=== PATIENT | male | born 1970 | race Two or more races ===

== ENCOUNTER 2017-05-30 15:37 | Inpatient (IN) | payer MEDICARE ==
[~2017-05-30] VITALS: Ht 177.8 cm; Wt 82.6 kg
[~2017-05-30 15:37] MED LIST: QUET200T PO
[2017-05-30 16:10] VITALS: BP 115/72
[2017-05-30] MEDS ORDERED: ZOLPIDEM TARTRATE 10 MG TABLET PO PRN (16:15)
[2017-05-30] MEDS ORDERED: HALOPERIDOL 5 MG TABLET PO PRN (16:15)
[2017-05-30] MEDS ORDERED: INFLUENZA VIRUS VACCINE QVS 2017-18 (3YR+)/PF 60 MCG/0.5 ML SYRINGE IM ONE (16:45)
[2017-05-30 17:15] VITALS: BP 117/76
[2017-05-30 18:15] VITALS: BP 115/63
[2017-05-30 19:15] VITALS: BP 118/68
[2017-05-30 20:15] VITALS: BP 107/65
[2017-05-30] MEDS: CEPHALEXIN MONOHYDRATE 500 MG CAPSULE PO SCH (20:36)
[2017-05-30] MEDS: QUEtiapine FUMARATE 100 MG TABLET PO SCH (20:36)
[2017-05-30] MEDS: BACITRACIN 28.4 GM OINTMENT TP SCH (20:36)
[2017-05-31] VITALS (7 sets, daily range): BP systolic 100–111; BP diastolic 53–71
[2017-05-31] MEDS: CEPHALEXIN MONOHYDRATE 500 MG CAPSULE PO SCH ×4 (08:29→20:33)
[2017-05-31] MEDS: NICOTINE 21 MG/24 HOUR PATCH TD SCH (08:29)
[2017-05-31] MEDS: BACITRACIN 28.4 GM OINTMENT TP SCH ×2 (08:30→16:43)
[2017-05-31] MEDS ORDERED: BuPROPion HCL XL 150 MG ER TABLET PO SCH (09:00)
[2017-05-31] MEDS: LORazepam 2 MG TABLET PO PRN (19:23)
[2017-05-31] MEDS: QUEtiapine FUMARATE 100 MG TABLET PO SCH (20:33)
[2017-06-01 08:33] VITALS: BP 100/60
[2017-06-01] MEDS: CEPHALEXIN MONOHYDRATE 500 MG CAPSULE PO SCH ×4 (09:14→20:50)
[2017-06-01] MEDS: BACITRACIN 28.4 GM OINTMENT TP SCH ×2 (09:15→17:02)
[2017-06-01] MEDS: BuPROPion HCL XL 150 MG ER TABLET PO SCH (09:15)
[2017-06-01] MEDS: NICOTINE 21 MG/24 HOUR PATCH TD SCH (09:15)
[2017-06-01] MEDS: LORazepam 2 MG TABLET PO PRN (14:48)
[2017-06-01 16:12] VITALS: BP 117/63
[2017-06-01] MEDS: QUEtiapine FUMARATE 100 MG TABLET PO SCH (20:50)
[2017-06-02 01:14] VITALS: BP 108/68
[2017-06-02 08:40] VITALS: BP 112/60
[2017-06-02] MEDS: CEPHALEXIN MONOHYDRATE 500 MG CAPSULE PO SCH ×4 (08:57→20:07)
[2017-06-02] MEDS: BuPROPion HCL XL 150 MG ER TABLET PO SCH (08:58)
[2017-06-02] MEDS: BACITRACIN 28.4 GM OINTMENT TP SCH ×2 (08:59→16:53)
[2017-06-02] MEDS: NICOTINE 21 MG/24 HOUR PATCH TD SCH (09:00)
[2017-06-02] MEDS: LORazepam 2 MG TABLET PO PRN ×2 (11:53→20:07)
[2017-06-02 16:00] VITALS: BP 109/62
[2017-06-02] MEDS: QUEtiapine FUMARATE 100 MG TABLET PO SCH (20:07)
[2017-06-03 01:53] VITALS: BP 118/64
[2017-06-03 08:30] VITALS: BP 101/72
[2017-06-03] MEDS: CEPHALEXIN MONOHYDRATE 500 MG CAPSULE PO SCH ×2 (08:43→12:29)
[2017-06-03] MEDS: NICOTINE 21 MG/24 HOUR PATCH TD SCH (08:43)
[2017-06-03] MEDS: BuPROPion HCL XL 150 MG ER TABLET PO SCH (08:43)
[2017-06-03] MEDS: BACITRACIN 28.4 GM OINTMENT TP SCH (08:44)
[2017-06-03] MEDS ORDERED: CEPH500 PO (11:42)
[2017-06-03] MEDS ORDERED: QUET100T PO (11:44)
[2017-06-03] MEDS ORDERED: BUPR-93 PO (11:48)
== END 2017-06-03 13:10 | disposition home or self-care (01) | DRG 885 ==
LOC: B2X 16:09
PROVIDERS: ADMIT Psychiatry & Neurology Psychiatry; ATTEND Psychiatry & Neurology Psychiatry
DX: F33.2 Major depressive disorder, recurrent severe without psychotic features (principal); R45.851 Suicidal ideations; F11.20 Opioid dependence, uncomplicated; F15.20 Other stimulant dependence, uncomplicated; B19.20 Unspecified viral hepatitis C without hepatic coma; Z59.0 Homelessness; Z91.5 Personal history of self-harm

== ENCOUNTER 2017-12-30 20:10 | Emergency (ER) | payer MEDICARE ==
[~2017-12-30] VITALS: Ht 172.7 cm; Wt 87.0 kg
[~2017-12-30 20:10] MED LIST changes: +BUPR-93 PO; +FLUO-191 PO; +QUET100T PO; -QUET200T PO
[2017-12-30 20:55] VITALS: BP 113/77
[2017-12-30] MEDS ORDERED: SULFAMETHOX/TRIMETH DS 800-160 MG/TABLET PO ONE (21:15)
[2017-12-30] MEDS ORDERED: IBUPROFEN 800 MG TABLET PO ONE (21:15)
[2017-12-30] MEDS ORDERED: LIDOCAINE 1% 10 ML VIAL INJ ONE (21:15)
== END 2017-12-30 22:00 | disposition home or self-care (01) ==
LOC: EMS 20:12
DX: H60.01 Abscess of right external ear (principal); L02.01 Cutaneous abscess of face
CPT/HCPCS: 10060; 99283; J3490

== ENCOUNTER 2018-11-04 17:35 | Inpatient (IN) | payer MEDICARE ==
[~2018-11-04] VITALS: Ht 177.8 cm; Wt 92.1 kg
[2018-11-04] MEDS ORDERED: HALOPERIDOL 5 MG TABLET PO PRN (19:00)
[2018-11-04 19:08] VITALS: BP 141/78
[2018-11-04] MEDS: LORazepam 2 MG TABLET PO PRN (20:30)
[2018-11-04 21:14] VITALS: BP 111/81
[2018-11-04] MEDS: ZOLPIDEM TARTRATE 10 MG TABLET PO PRN (21:27)
[2018-11-05 06:44] VITALS: BP 115/62
[2018-11-05 08:22] VITALS: BP 107/69
[2018-11-05] MEDS: LORazepam 2 MG TABLET PO PRN ×2 (08:39→16:02)
[2018-11-05] MEDS: FLUoxetine HCL 20 MG CAPSULE PO SCH (12:32)
[2018-11-05] MEDS: BuPROPion HCL XL 150 MG ER TABLET PO SCH (12:32)
[2018-11-05 16:12] VITALS: BP 109/67
[2018-11-05] MEDS: QUEtiapine FUMARATE 200 MG TABLET PO SCH (20:31)
[2018-11-05] MEDS: ZOLPIDEM TARTRATE 10 MG TABLET PO PRN (21:22)
[2018-11-06 06:38] VITALS: BP 110/63
[2018-11-06 08:22] VITALS: BP 107/67
[2018-11-06] MEDS: FLUoxetine HCL 20 MG CAPSULE PO SCH (08:36)
[2018-11-06] MEDS: BuPROPion HCL XL 150 MG ER TABLET PO SCH (08:36)
[2018-11-06 08:40] LABS: BASOPHILS % (AUTO) 1.1 % (0.0-2.0); EOSINOPHILS % (AUTO) 3.2 % (1.0-6.0); HEMATOCRIT 45.7 % (41-53); HEMOGLOBIN 15.2 g/dL (13.5-17.5); LYMPHOCYTES # (AUTO) 2.1 K/uL (1.0-4.8); LYMPHOCYTES % (AUTO) 38.4 % (22.0-44.0); MEAN CORPUSCULAR HEMOGLOBIN 33.7 pg (26.0-34.0); MEAN CORPUSCULAR HGB CONC 33.2 G/dL (31.0-37.0); MEAN CORPUSCULAR VOLUME 102 fL (80-100); MONOCYTES # (AUTO) 0.5 K/uL (0.1-1.0); MONOCYTES % (AUTO) 8.4 % (2.0-9.0); NEUTROPHILS # (AUTO) 2.6 K/uL (1.8-7.7); NEUTROPHILS % (AUTO) 48.9 % (40.0-70.0); PLATELET COUNT (AUTO) 215 K/uL (150-450); RED BLOOD CELL COUNT(AUTO) 4.49 MIL/uL (4.50-5.90); RED CELL DISTRIBUTION WIDTH 12.8 % (11.5-14.5)
[2018-11-06 08:56] LABS: HEMOGLOBIN A1C 5.5 % (4.5-6.2)
[2018-11-06 09:16] LABS: ALANINE AMINOTRANSFERASE 115 U/L (12-78); ALBUMIN 3.3 g/dL (3.4-5.0); ALKALINE PHOSPHATASE 53 U/L (46-116); ANION GAP 10 mmol/L (8-16); ASPARTATE AMINOTRANSFERASE 80 U/L (15-37); BILIRUBIN,TOTAL 0.5 mg/dL (0.1-1.0); CALCIUM, TOTAL 8.9 mg/dL (8.8-10.5); CARBON DIOXIDE 25 mmol/L (22-29); CHLORIDE 107 mmol/L (98-107); CHOL/HDL RATIO 3.5 (4.2-7.3); CHOLESTEROL 161 mg/dL (131-200); CREATININE 0.95 mg/dL (0.60-1.30); FREE T4 (FREE THYROXINE) 1.17 ng/dL (0.76-1.46); GLOMERULAR FILTR. RATE CALC > 60 mL/min (>60); GLUCOSE,RANDOM 82 mg/dL (70-110); HDL CHOLESTEROL 46 mg/dL (40-60); LDL CHOL (CALC.) 103 mg/dL (0-130); SODIUM SERUM 142 mmol/L (136-145); THYROID STIMULATING HORMONE 2.43 uIU/mL (0.36-3.74); TOTAL PROTEIN, SERUM 6.6 g/dL (6.4-8.2); TRIGLYCERIDES 60 mg/dL (15-150); UREA NITROGEN, BLOOD 10 mg/dL (7-18)
[2018-11-06 16:09] VITALS: BP 110/70
[2018-11-06] MEDS: QUEtiapine FUMARATE 200 MG TABLET PO SCH (20:32)
[2018-11-06] MEDS: LORazepam 2 MG TABLET PO PRN (20:41)
[2018-11-07 06:25] VITALS: BP 106/68
[2018-11-07 08:09] VITALS: BP 118/70
[2018-11-07] MEDS: BuPROPion HCL XL 150 MG ER TABLET PO SCH (08:10)
[2018-11-07] MEDS: FLUoxetine HCL 20 MG CAPSULE PO SCH (08:10)
[2018-11-07 08:21] LABS: AMPHET/METH SCREEN,URINE NEGATIVE (NEGATIVE); BARBITURATE SCREEN, URINE NEGATIVE (NEGATIVE); BENZODIAZEPINES SCREEN,URINE NEGATIVE (NEGATIVE); CANNABINOID SCREEN,URINE NEGATIVE (NEGATIVE); COCAINE SCREEN,URINE NEGATIVE (NEGATIVE); METHADONE SCREEN, URINE NEGATIVE (NEGATIVE); OPIATE SCREEN,URINE NEGATIVE (NEGATIVE)
[2018-11-07 08:40] LABS: PHENCYCLIDINE SCREEN,URINE NEGATIVE (NEGATIVE)
[2018-11-07 08:45] LABS: APPEARANCE,URINE CLEAR (CLEAR); BILIRUBIN,URINE NEGATIVE (NEGATIVE); GLUCOSE, URINE (UA) NEGATIVE (NEGATIVE); KETONES,URINE NEGATIVE (NEGATIVE); LEUKOCYTE ESTERASE ,URINE NEGATIVE (NEGATIVE); NITRATE,URINE NEGATIVE (NEGATIVE); OCCULT BLOOD,URINE NEGATIVE (NEGATIVE); PROTEIN,URINE NEGATIVE (NEGATIVE)
[2018-11-07] MEDS: LORazepam 2 MG TABLET PO PRN (13:13)
[2018-11-07 16:13] VITALS: BP 119/78
[2018-11-07] MEDS: QUEtiapine FUMARATE 200 MG TABLET PO SCH (20:13)
[2018-11-08 06:06] VITALS: BP 114/70
[2018-11-08 08:05] VITALS: BP 106/65
[2018-11-08] MEDS: FLUoxetine HCL 20 MG CAPSULE PO SCH (08:44)
[2018-11-08] MEDS: BuPROPion HCL XL 150 MG ER TABLET PO SCH (08:44)
[2018-11-08] MEDS: LORazepam 2 MG TABLET PO PRN (14:20)
[2018-11-08 16:16] VITALS: BP 108/61
[2018-11-08] MEDS: QUEtiapine FUMARATE 200 MG TABLET PO SCH (20:29)
[2018-11-09 05:45] VITALS: BP 108/62
[2018-11-09] MEDS: LORazepam 2 MG TABLET PO PRN ×2 (05:47→13:52)
[2018-11-09 08:06] VITALS: BP 107/67
[2018-11-09] MEDS: FLUoxetine HCL 20 MG CAPSULE PO SCH (08:35)
[2018-11-09] MEDS: BuPROPion HCL XL 150 MG ER TABLET PO SCH (08:35)
[2018-11-09 16:08] VITALS: BP 104/70
[2018-11-09] MEDS: QUEtiapine FUMARATE 200 MG TABLET PO SCH (20:29)
[2018-11-10 00:31] VITALS: BP 121/68
[2018-11-10 08:21] VITALS: BP 101/62
[2018-11-10] MEDS: FLUoxetine HCL 20 MG CAPSULE PO SCH (08:39)
[2018-11-10] MEDS: BuPROPion HCL XL 150 MG ER TABLET PO SCH (08:39)
[2018-11-10] MEDS ORDERED: QUET200T PO (14:24)
[2018-11-10] MEDS ORDERED: BUPR-93 PO (14:24)
[2018-11-10] MEDS ORDERED: FLUO-191 PO (14:24)
== END 2018-11-10 16:00 | disposition home or self-care (01) | DRG 885 ==
LOC: B2X 18:51
DX: F33.2 Major depressive disorder, recurrent severe without psychotic features (principal); R45.851 Suicidal ideations; B19.20 Unspecified viral hepatitis C without hepatic coma; F11.90 Opioid use, unspecified, uncomplicated; F15.90 Other stimulant use, unspecified, uncomplicated; F17.200 Nicotine dependence, unspecified, uncomplicated; Z59.0 Homelessness; Z80.9 Family history of malignant neoplasm, unspecified; Z79.899 Other long term (current) drug therapy
CPT/HCPCS: 80074; 80307; 82105; 83036; 84439; 84443

== ENCOUNTER 2018-11-27 15:14 | Inpatient (IN) | payer MEDICARE ==
[~2018-11-27] VITALS: Ht 177.8 cm; Wt 94.8 kg
[~2018-11-27 15:14] MED LIST changes: -QUET100T PO; +QUET200T PO
[2018-11-27] MEDS ORDERED: HALOPERIDOL 5 MG TABLET PO PRN (17:45)
[2018-11-27] MEDS ORDERED: ZOLPIDEM TARTRATE 10 MG TABLET PO PRN (17:45)
[2018-11-27] MEDS ORDERED: LORazepam 2 MG TABLET PO PRN (17:45)
[2018-11-27 17:55] VITALS: BP 120/78
[2018-11-27 18:30] VITALS: BP 109/74
[2018-11-27] MEDS: QUEtiapine FUMARATE 200 MG TABLET PO SCH (20:10)
[2018-11-28 05:15] VITALS: BP 118/70
[2018-11-28 07:52] VITALS: BP 104/67
[2018-11-28 08:00] VITALS: BP 104/67
[2018-11-28] MEDS: BuPROPion HCL XL 150 MG ER TABLET PO SCH (08:07)
[2018-11-28] MEDS: FLUoxetine HCL 20 MG CAPSULE PO SCH (08:07)
[2018-11-28] MEDS ORDERED: BISACODYL 5 MG EC TABLET PO PRN (12:15)
[2018-11-28 16:03] VITALS: BP 116/86
[2018-11-28] MEDS: QUEtiapine FUMARATE 200 MG TABLET PO SCH (20:01)
[2018-11-29 03:34] VITALS: BP 119/69
[2018-11-29 07:18] LABS: BASOPHILS % (AUTO) 1.2 % (0.0-2.0); HEMATOCRIT 47.7 % (41-53); HEMOGLOBIN 16.4 g/dL (13.5-17.5); LYMPHOCYTES # (AUTO) 2.2 K/uL (1.0-4.8); LYMPHOCYTES % (AUTO) 31.4 % (22.0-44.0); MEAN CORPUSCULAR HEMOGLOBIN 34.5 pg (26.0-34.0); MEAN CORPUSCULAR HGB CONC 34.5 G/dL (31.0-37.0); MEAN CORPUSCULAR VOLUME 100 fL (80-100); MONOCYTES # (AUTO) 0.6 K/uL (0.1-1.0); MONOCYTES % (AUTO) 8.1 % (2.0-9.0); NEUTROPHILS # (AUTO) 3.9 K/uL (1.8-7.7); NEUTROPHILS % (AUTO) 56.3 % (40.0-70.0); PLATELET COUNT (AUTO) 226 K/uL (150-450); RED BLOOD CELL COUNT(AUTO) 4.77 MIL/uL (4.50-5.90); RED CELL DISTRIBUTION WIDTH 12.3 % (11.5-14.5)
[2018-11-29 07:58] LABS: ALANINE AMINOTRANSFERASE 106 U/L (12-78); ALBUMIN 3.4 g/dL (3.4-5.0); ALKALINE PHOSPHATASE 58 U/L (46-116); ANION GAP 11 mmol/L (8-16); ASPARTATE AMINOTRANSFERASE 64 U/L (15-37); BILIRUBIN,TOTAL 0.4 mg/dL (0.1-1.0); CARBON DIOXIDE 24 mmol/L (22-29); CHLORIDE 104 mmol/L (98-107); CHOL/HDL RATIO 4.3 (4.2-7.3); CHOLESTEROL 181 mg/dL (131-200); CREATININE 1.01 mg/dL (0.60-1.30); FREE T4 (FREE THYROXINE) 1.06 ng/dL (0.76-1.46); GLOMERULAR FILTR. RATE CALC > 60 mL/min (>60); GLUCOSE,RANDOM 82 mg/dL (70-110); HDL CHOLESTEROL 42 mg/dL (40-60); LDL CHOL (CALC.) 118 mg/dL (0-130); POTASSIUM 4.2 mmol/L (3.5-5.1); SODIUM SERUM 139 mmol/L (136-145); TOTAL PROTEIN, SERUM 6.6 g/dL (6.4-8.2); TRIGLYCERIDES 106 mg/dL (15-150); UREA NITROGEN, BLOOD 13 mg/dL (7-18)
[2018-11-29 07:59] LABS: HEMOGLOBIN A1C 5.4 % (4.5-6.2)
[2018-11-29 08:05] VITALS: BP 108/67
[2018-11-29] MEDS: FLUoxetine HCL 20 MG CAPSULE PO SCH (08:44)
[2018-11-29] MEDS: BuPROPion HCL XL 150 MG ER TABLET PO SCH (08:44)
[2018-11-29 16:42] VITALS: BP 119/81
[2018-11-29] MEDS: QUEtiapine FUMARATE 200 MG TABLET PO SCH (20:28)
[2018-11-30 00:25] VITALS: BP 103/62
[2018-11-30 08:07] VITALS: BP 112/72
[2018-11-30] MEDS: BuPROPion HCL XL 150 MG ER TABLET PO SCH (08:21)
[2018-11-30] MEDS: FLUoxetine HCL 20 MG CAPSULE PO SCH (08:21)
[2018-11-30 16:02] VITALS: BP 125/83
[2018-11-30] MEDS: QUEtiapine FUMARATE 200 MG TABLET PO SCH (20:06)
[2018-12-01 00:34] VITALS: BP 112/67
[2018-12-01 08:05] VITALS: BP 110/73
[2018-12-01] MEDS: FLUoxetine HCL 20 MG CAPSULE PO SCH (08:15)
[2018-12-01] MEDS: BuPROPion HCL XL 150 MG ER TABLET PO SCH (08:15)
== END 2018-12-01 12:10 | disposition home or self-care (01) | DRG 885 ==
LOC: B2X 18:18
DX: F33.2 Major depressive disorder, recurrent severe without psychotic features (principal); R45.851 Suicidal ideations; B19.20 Unspecified viral hepatitis C without hepatic coma; R79.89 Other specified abnormal findings of blood chemistry; K59.00 Constipation, unspecified; Z79.899 Other long term (current) drug therapy; Z91.5 Personal history of self-harm
CPT/HCPCS: 83036; 84439; 84443; 87081

== ENCOUNTER 2019-05-25 18:47 | Inpatient (IN) | payer MEDICARE, MEDICAID ==
[~2019-05-25] VITALS: Ht 177.8 cm; Wt 89.8 kg
[~2019-05-25 18:47] MED LIST changes: -QUET200T PO
[2019-05-25] MEDS ORDERED: QUET25TA PO (18:57)
[2019-05-25] MEDS ORDERED: QUET200T PO (18:57)
[2019-05-25] MEDS ORDERED: HALOPERIDOL 5 MG TABLET PO PRN (19:15)
[2019-05-25] MEDS ORDERED: ZOLPIDEM TARTRATE 10 MG TABLET PO PRN (19:15)
[2019-05-25 19:26] VITALS: BP 123/92
[2019-05-25 20:59] VITALS: BP 121/85
[2019-05-25] MEDS: QUEtiapine FUMARATE 200 MG TABLET PO SCH (21:09)
[2019-05-25] MEDS ORDERED: INFLUENZA VIRUS VACCINE QVS 2019-20 (3YR+)/PF 60 MCG/0.5 ML SYRINGE IM ONE (21:45)
[2019-05-26 00:15] VITALS: BP 107/57
[2019-05-26 07:49] LABS: BASOPHILS % (AUTO) 0.8 % (0.0-2.0); EOSINOPHILS % (AUTO) 3.5 % (1.0-6.0); HEMATOCRIT 43.5 % (41-53); HEMOGLOBIN 14.4 g/dL (13.5-17.5); LYMPHOCYTES # (AUTO) 2.6 K/uL (1.0-4.8); LYMPHOCYTES % (AUTO) 47.3 % (22.0-44.0); MEAN CORPUSCULAR HEMOGLOBIN 33.2 pg (26.0-34.0); MEAN CORPUSCULAR HGB CONC 33.1 G/dL (31.0-37.0); MEAN CORPUSCULAR VOLUME 100 fL (80-100); MONOCYTES # (AUTO) 0.6 K/uL (0.1-1.0); MONOCYTES % (AUTO) 11.6 % (2.0-9.0); NEUTROPHILS % (AUTO) 36.8 % (40.0-70.0); PLATELET COUNT (AUTO) 236 K/uL (150-450); RED BLOOD CELL COUNT(AUTO) 4.33 MIL/uL (4.50-5.90); RED CELL DISTRIBUTION WIDTH 13.1 % (11.5-14.5)
[2019-05-26 08:06] VITALS: BP 140/71
[2019-05-26 08:07] LABS: HEMOGLOBIN A1C 5.7 % (3.8-5.6)
[2019-05-26 08:19] LABS: ALANINE AMINOTRANSFERASE 62 U/L (12-78); ALBUMIN 3.5 g/dL (3.4-5.0); ALKALINE PHOSPHATASE 47 U/L (46-116); ANION GAP 11 mmol/L (8-16); ASPARTATE AMINOTRANSFERASE 40 U/L (15-37); BILIRUBIN,TOTAL 0.5 mg/dL (0.1-1.0); CARBON DIOXIDE 24 mmol/L (22-29); CHLORIDE 104 mmol/L (98-107); CHOL/HDL RATIO 2.7 (4.2-7.3); CHOLESTEROL 158 mg/dL (131-200); FREE T4 (FREE THYROXINE) 1.15 ng/dL (0.76-1.46); GLOMERULAR FILTR. RATE CALC > 60 mL/min (>60); GLUCOSE,RANDOM 87 mg/dL (70-110); HDL CHOLESTEROL 58 mg/dL (40-60); LDL CHOL (CALC.) 92 mg/dL (0-130); POTASSIUM 3.7 mmol/L (3.5-5.1); SODIUM SERUM 139 mmol/L (136-145); THYROID STIMULATING HORMONE 3.16 uIU/mL (0.36-3.74); TOTAL PROTEIN, SERUM 6.8 g/dL (6.4-8.2); TRIGLYCERIDES 42 mg/dL (15-150); UREA NITROGEN, BLOOD 12 mg/dL (7-18)
[2019-05-26 08:20] VITALS: BP 113/75
[2019-05-26] MEDS: QUEtiapine FUMARATE 25 MG TABLET PO SCH (08:55)
[2019-05-26] MEDS: LORazepam 2 MG TABLET PO PRN (14:51)
[2019-05-26 16:10] VITALS: BP 110/69
[2019-05-26] MEDS: QUEtiapine FUMARATE 200 MG TABLET PO SCH (20:04)
[2019-05-26] MEDS ORDERED: QUEtiapine FUMARATE 200 MG TABLET PO SCH (21:00)
[2019-05-27 06:30] VITALS: BP 106/62
[2019-05-27] MEDS: BuPROPion HCL XL 150 MG ER TABLET PO SCH (08:09)
[2019-05-27] MEDS: FLUoxetine HCL 20 MG CAPSULE PO SCH (08:09)
[2019-05-27] MEDS: QUEtiapine FUMARATE 25 MG TABLET PO SCH (08:09)
[2019-05-27 08:13] VITALS: BP 108/83
[2019-05-27] MEDS ORDERED: QUEtiapine FUMARATE 25 MG TABLET PO SCH (09:00)
[2019-05-27] MEDS: LORazepam 2 MG TABLET PO PRN ×2 (10:14→17:16)
[2019-05-27 16:20] VITALS: BP 124/86
[2019-05-27] MEDS: QUEtiapine FUMARATE 200 MG TABLET PO SCH (20:03)
[2019-05-28 00:08] VITALS: BP 123/73
[2019-05-28] MEDS: FLUoxetine HCL 20 MG CAPSULE PO SCH (08:21)
[2019-05-28] MEDS: BuPROPion HCL XL 150 MG ER TABLET PO SCH (08:22)
[2019-05-28] MEDS: QUEtiapine FUMARATE 25 MG TABLET PO SCH (08:22)
[2019-05-28 12:32] VITALS: BP 123/66
[2019-05-28 16:23] VITALS: BP 122/80
[2019-05-28] MEDS: LORazepam 2 MG TABLET PO PRN (17:48)
[2019-05-28] MEDS: QUEtiapine FUMARATE 200 MG TABLET PO SCH (20:02)
[2019-05-29 06:38] VITALS: BP 115/73
[2019-05-29 08:06] VITALS: BP 132/80
[2019-05-29] MEDS: FLUoxetine HCL 20 MG CAPSULE PO SCH (08:07)
[2019-05-29] MEDS: BuPROPion HCL XL 150 MG ER TABLET PO SCH (08:08)
[2019-05-29] MEDS: QUEtiapine FUMARATE 25 MG TABLET PO SCH (08:08)
[2019-05-29] MEDS: LORazepam 2 MG TABLET PO PRN (15:28)
[2019-05-29 16:08] VITALS: BP 135/72
[2019-05-29] MEDS: QUEtiapine FUMARATE 200 MG TABLET PO SCH (20:02)
[2019-05-30 08:07] VITALS: BP 127/82
[2019-05-30] MEDS: BuPROPion HCL XL 150 MG ER TABLET PO SCH (08:16)
[2019-05-30] MEDS: SERTRALINE HCL 50 MG TABLET PO SCH (08:16)
[2019-05-30] MEDS: QUEtiapine FUMARATE 25 MG TABLET PO SCH (08:16)
[2019-05-30] MEDS: LORazepam 2 MG TABLET PO PRN ×2 (12:30→20:12)
[2019-05-30 16:07] VITALS: BP 118/68
[2019-05-30] MEDS: QUEtiapine FUMARATE 200 MG TABLET PO SCH (20:07)
[2019-05-31 06:13] VITALS: BP 121/68
[2019-05-31 08:21] VITALS: BP 121/66
[2019-05-31] MEDS: SERTRALINE HCL 50 MG TABLET PO SCH (08:33)
[2019-05-31] MEDS: BuPROPion HCL XL 150 MG ER TABLET PO SCH (08:33)
[2019-05-31] MEDS: QUEtiapine FUMARATE 25 MG TABLET PO SCH (08:33)
[2019-05-31] MEDS: LORazepam 2 MG TABLET PO PRN ×2 (09:19→17:08)
[2019-05-31 16:02] VITALS: BP 114/69
[2019-05-31] MEDS: QUEtiapine FUMARATE 200 MG TABLET PO SCH (20:22)
[2019-06-01 03:29] VITALS: BP 115/78
[2019-06-01 08:14] VITALS: BP 106/67
[2019-06-01] MEDS: SERTRALINE HCL 50 MG TABLET PO SCH (08:56)
[2019-06-01] MEDS: QUEtiapine FUMARATE 25 MG TABLET PO SCH (08:56)
[2019-06-01] MEDS: BuPROPion HCL XL 150 MG ER TABLET PO SCH (08:56)
[2019-06-01] MEDS: LORazepam 2 MG TABLET PO PRN ×2 (09:00→16:31)
[2019-06-01 16:21] VITALS: BP 114/73
[2019-06-01] MEDS: QUEtiapine FUMARATE 200 MG TABLET PO SCH (20:31)
[2019-06-02 06:30] VITALS: BP 126/70
[2019-06-02] MEDS: SERTRALINE HCL 50 MG TABLET PO SCH (08:02)
[2019-06-02] MEDS: QUEtiapine FUMARATE 25 MG TABLET PO SCH (08:02)
[2019-06-02] MEDS: BuPROPion HCL XL 150 MG ER TABLET PO SCH (08:02)
[2019-06-02 08:08] VITALS: BP 112/59
[2019-06-02] MEDS ORDERED: SERT50TA12 PO (12:53)
== END 2019-06-02 14:15 | disposition home or self-care (01) | DRG 885 ==
LOC: B2X 19:11
PROVIDERS: ADMIT Psychiatry & Neurology Child & Adolescent Psychiatry; ATTEND Psychiatry & Neurology Child & Adolescent Psychiatry
DX: F31.4 Bipolar disorder, current episode depressed, severe, without psychotic features (principal); R74.0 Nonspecific elevation of levels of transaminase and lactic acid dehydrogenase [LDH]; K59.00 Constipation, unspecified
CPT/HCPCS: 83036; 84439; 84443

== ENCOUNTER 2019-06-13 16:32 | Inpatient (IN) | payer MEDICARE ==
[~2019-06-13] VITALS: Ht 177.8 cm; Wt 86.3 kg
[~2019-06-13 16:32] MED LIST changes: -FLUO-191 PO; +QUET200T PO; +QUET25TA PO; +SERT50TA12 PO
[2019-06-13] MEDS ORDERED: HALOPERIDOL 5 MG TABLET PO PRN (18:00)
[2019-06-13 18:57] VITALS: BP 124/79
[2019-06-13 19:24] VITALS: BP 105/70
[2019-06-13] MEDS: LORazepam 2 MG TABLET PO PRN (20:43)
[2019-06-13] MEDS: ZOLPIDEM TARTRATE 10 MG TABLET PO PRN (21:22)
[2019-06-14 07:26] LABS: BASOPHILS % (AUTO) 0.7 % (0.0-2.0); EOSINOPHILS % (AUTO) 3.7 % (1.0-6.0); HEMATOCRIT 46.2 % (41-53); HEMOGLOBIN 15.4 g/dL (13.5-17.5); LYMPHOCYTES # (AUTO) 2.7 K/uL (1.0-4.8); LYMPHOCYTES % (AUTO) 28.6 % (22.0-44.0); MEAN CORPUSCULAR HEMOGLOBIN 33.2 pg (26.0-34.0); MEAN CORPUSCULAR HGB CONC 33.4 G/dL (31.0-37.0); MEAN CORPUSCULAR VOLUME 99 fL (80-100); MONOCYTES # (AUTO) 0.7 K/uL (0.1-1.0); MONOCYTES % (AUTO) 7.2 % (2.0-9.0); NEUTROPHILS # (AUTO) 5.6 K/uL (1.8-7.7); NEUTROPHILS % (AUTO) 59.8 % (40.0-70.0); PLATELET COUNT (AUTO) 248 K/uL (150-450); RED BLOOD CELL COUNT(AUTO) 4.65 MIL/uL (4.50-5.90); RED CELL DISTRIBUTION WIDTH 12.8 % (11.5-14.5)
[2019-06-14 07:41] LABS: ALANINE AMINOTRANSFERASE 79 U/L (12-78); ALBUMIN 3.6 g/dL (3.4-5.0); ALKALINE PHOSPHATASE 57 U/L (46-116); ANION GAP 8 mmol/L (8-16); ASPARTATE AMINOTRANSFERASE 43 U/L (15-37); BILIRUBIN,TOTAL 0.5 mg/dL (0.1-1.0); CALCIUM, TOTAL 8.7 mg/dL (8.8-10.5); CARBON DIOXIDE 27 mmol/L (22-29); CHLORIDE 105 mmol/L (98-107); CHOL/HDL RATIO 4.2 (4.2-7.3); CHOLESTEROL 208 mg/dL (131-200); CREATININE 0.92 mg/dL (0.60-1.30); FREE T4 (FREE THYROXINE) 1.13 ng/dL (0.76-1.46); GLOMERULAR FILTR. RATE CALC > 60 mL/min (>60); GLUCOSE,RANDOM 82 mg/dL (70-110); HDL CHOLESTEROL 50 mg/dL (40-60); LDL CHOL (CALC.) 141 mg/dL (0-130); POTASSIUM 4.2 mmol/L (3.5-5.1); SODIUM SERUM 140 mmol/L (136-145); THYROID STIMULATING HORMONE 2.46 uIU/mL (0.36-3.74); TOTAL PROTEIN, SERUM 6.7 g/dL (6.4-8.2); TRIGLYCERIDES 83 mg/dL (15-150); UREA NITROGEN, BLOOD 17 mg/dL (7-18)
[2019-06-14 08:08] VITALS: BP 110/70
[2019-06-14] MEDS: LORazepam 2 MG TABLET PO PRN ×2 (09:49→16:00)
[2019-06-14 09:51] VITALS: BP 134/75
[2019-06-14] MEDS: SERTRALINE HCL 100 MG TABLET PO SCH (12:18)
[2019-06-14] MEDS: QUEtiapine FUMARATE 25 MG TABLET PO SCH (12:18)
[2019-06-14] MEDS ORDERED: LOPERAMIDE HCL 2 MG CAPSULE PO PRN (13:15)
[2019-06-14] MEDS ORDERED: ACETAMINOPHEN 325 MG TABLET PO PRN (13:15)
[2019-06-14] MEDS ORDERED: ONDANSETRON HCL 4 MG TABLET PO PRN (13:15)
[2019-06-14] MEDS ORDERED: CloNIDine HCL 0.1 MG TABLET PO PRN (13:15)
[2019-06-14] MEDS ORDERED: PETROLATUM,WHITE 28 GM JELLY TP PRN (13:15)
[2019-06-14] MEDS ORDERED: NICOTINE 14 MG/24 HOUR PATCH TD PRN (13:15)
[2019-06-14] MEDS ORDERED: GuaiFENesin/D-METHORPHAN [SUGAR-FREE] 200-20MG/10 ML SYRUP UDCUP PO PRN (13:15)
[2019-06-14] MEDS ORDERED: ALBUTEROL SULFATE HFA 90 MCG/PUFF 8 GM INHALER IH PRN (13:15)
[2019-06-14] MEDS ORDERED: IBUPROFEN 400 MG TABLET PO PRN (13:15)
[2019-06-14 16:07] VITALS: BP 113/72
[2019-06-14] MEDS: MAGNESIUM HYDROXIDE SUSPENSION 30 ML UDCUP PO PRN (17:22)
[2019-06-14] MEDS: QUEtiapine FUMARATE 200 MG TABLET PO SCH (20:27)
[2019-06-14] MEDS: ZOLPIDEM TARTRATE 10 MG TABLET PO PRN (20:52)
[2019-06-15 07:23] VITALS: BP 108/68
[2019-06-15 08:17] VITALS: BP 110/65
[2019-06-15] MEDS: SERTRALINE HCL 100 MG TABLET PO SCH (08:25)
[2019-06-15] MEDS: QUEtiapine FUMARATE 25 MG TABLET PO SCH (08:25)
[2019-06-15] MEDS: LORazepam 2 MG TABLET PO PRN ×2 (09:53→19:21)
[2019-06-15] MEDS: MAG HYDROX/AL HYDROX/SIMETH ES 30 ML SUSPENSION UDCUP PO PRN (11:51)
[2019-06-15 16:10] VITALS: BP 113/73
[2019-06-15] MEDS: MAGNESIUM HYDROXIDE SUSPENSION 30 ML UDCUP PO PRN (19:21)
[2019-06-15] MEDS: ZOLPIDEM TARTRATE 10 MG TABLET PO PRN (20:34)
[2019-06-15] MEDS: QUEtiapine FUMARATE 200 MG TABLET PO SCH (20:34)
[2019-06-16 05:32] VITALS: BP 104/60
[2019-06-16 08:21] VITALS: BP 103/62
[2019-06-16] MEDS: QUEtiapine FUMARATE 25 MG TABLET PO SCH (08:38)
[2019-06-16] MEDS: SERTRALINE HCL 100 MG TABLET PO SCH (08:38)
[2019-06-16] MEDS: LORazepam 2 MG TABLET PO PRN ×3 (09:33→20:51)
[2019-06-16] MEDS: MAGNESIUM HYDROXIDE SUSPENSION 30 ML UDCUP PO PRN (09:36)
[2019-06-16 16:21] VITALS: BP 118/66
[2019-06-16] MEDS: QUEtiapine FUMARATE 200 MG TABLET PO SCH (20:27)
[2019-06-16] MEDS: ZOLPIDEM TARTRATE 10 MG TABLET PO PRN (21:39)
[2019-06-17 05:57] VITALS: BP 113/67
[2019-06-17 08:11] VITALS: BP 99/61
[2019-06-17] MEDS: LORazepam 2 MG TABLET PO PRN ×2 (09:03→17:08)
[2019-06-17] MEDS: SERTRALINE HCL 100 MG TABLET PO SCH (09:05)
[2019-06-17] MEDS: QUEtiapine FUMARATE 25 MG TABLET PO SCH (09:05)
[2019-06-17] MEDS: MAGNESIUM HYDROXIDE SUSPENSION 30 ML UDCUP PO PRN (10:03)
[2019-06-17 16:38] VITALS: BP 106/74
[2019-06-17 17:09] VITALS: BP 110/79
[2019-06-17] MEDS: QUEtiapine FUMARATE 200 MG TABLET PO SCH (20:28)
[2019-06-17] MEDS: ZOLPIDEM TARTRATE 10 MG TABLET PO PRN (20:59)
[2019-06-18 06:16] VITALS: BP 105/69
[2019-06-18 08:18] VITALS: BP 105/70
[2019-06-18] MEDS: SERTRALINE HCL 100 MG TABLET PO SCH (08:33)
[2019-06-18] MEDS: QUEtiapine FUMARATE 25 MG TABLET PO SCH (08:33)
[2019-06-18] MEDS: LORazepam 2 MG TABLET PO PRN ×3 (08:44→19:31)
[2019-06-18] MEDS: MAGNESIUM HYDROXIDE SUSPENSION 30 ML UDCUP PO PRN (08:44)
[2019-06-18 16:12] VITALS: BP 102/73
[2019-06-18] MEDS: QUEtiapine FUMARATE 200 MG TABLET PO SCH (20:31)
[2019-06-18] MEDS: ZOLPIDEM TARTRATE 10 MG TABLET PO PRN (20:48)
[2019-06-19 08:23] VITALS: BP 102/64
[2019-06-19] MEDS: QUEtiapine FUMARATE 25 MG TABLET PO SCH (08:37)
[2019-06-19] MEDS: SERTRALINE HCL 100 MG TABLET PO SCH (08:37)
[2019-06-19] MEDS: MAGNESIUM HYDROXIDE SUSPENSION 30 ML UDCUP PO PRN (13:05)
[2019-06-19] MEDS: LORazepam 2 MG TABLET PO PRN ×2 (14:00→19:04)
[2019-06-19 16:11] VITALS: BP 124/72
[2019-06-19] MEDS: QUEtiapine FUMARATE 200 MG TABLET PO SCH (20:06)
[2019-06-19] MEDS: ZOLPIDEM TARTRATE 10 MG TABLET PO PRN (20:07)
[2019-06-20 01:58] VITALS: BP 121/74
[2019-06-20 08:07] VITALS: BP_SYST 103; BP_SYST 107; BP_DIAS 58; BP_DIAS 75
[2019-06-20] MEDS: SERTRALINE HCL 100 MG TABLET PO SCH (08:43)
[2019-06-20] MEDS: QUEtiapine FUMARATE 25 MG TABLET PO SCH (08:43)
[2019-06-20] MEDS: LORazepam 2 MG TABLET PO PRN ×2 (10:02→17:13)
[2019-06-20] MEDS: MAGNESIUM HYDROXIDE SUSPENSION 30 ML UDCUP PO PRN (10:02)
[2019-06-20 16:00] VITALS: BP 103/69
[2019-06-20] MEDS: QUEtiapine FUMARATE 200 MG TABLET PO SCH (20:25)
[2019-06-20] MEDS: ZOLPIDEM TARTRATE 10 MG TABLET PO PRN (20:51)
[2019-06-21 06:30] VITALS: BP 100/79
[2019-06-21] MEDS: QUEtiapine FUMARATE 25 MG TABLET PO SCH (08:31)
[2019-06-21] MEDS: SERTRALINE HCL 100 MG TABLET PO SCH (08:31)
[2019-06-21 08:34] VITALS: BP 100/61
[2019-06-21] MEDS: LORazepam 1 MG TABLET PO PRN (13:15)
[2019-06-21] MEDS: MAG HYDROX/AL HYDROX/SIMETH ES 30 ML SUSPENSION UDCUP PO PRN (13:16)
[2019-06-21 16:16] VITALS: BP 106/69
[2019-06-21] MEDS: MAGNESIUM HYDROXIDE SUSPENSION 30 ML UDCUP PO PRN (17:41)
[2019-06-21] MEDS: QUEtiapine FUMARATE 200 MG TABLET PO SCH (20:40)
[2019-06-21] MEDS: ZOLPIDEM TARTRATE 10 MG TABLET PO PRN (20:40)
[2019-06-22 05:30] VITALS: BP 105/70
[2019-06-22] MEDS: MAGNESIUM HYDROXIDE SUSPENSION 30 ML UDCUP PO PRN (07:20)
[2019-06-22 08:30] VITALS: BP 103/60
[2019-06-22] MEDS: SERTRALINE HCL 100 MG TABLET PO SCH (08:46)
[2019-06-22] MEDS: QUEtiapine FUMARATE 25 MG TABLET PO SCH (08:46)
[2019-06-22] MEDS: LORazepam 1 MG TABLET PO PRN ×2 (12:33→17:36)
[2019-06-22] MEDS: DOCUSATE SODIUM 100 MG CAPSULE PO PRN (12:33)
[2019-06-22 16:07] VITALS: BP 109/73
[2019-06-22] MEDS: QUEtiapine FUMARATE 200 MG TABLET PO SCH (20:06)
[2019-06-22] MEDS: ZOLPIDEM TARTRATE 10 MG TABLET PO PRN (20:19)
[2019-06-23 06:37] VITALS: BP 104/65
[2019-06-23] MEDS: SERTRALINE HCL 100 MG TABLET PO SCH (08:13)
[2019-06-23] MEDS: QUEtiapine FUMARATE 25 MG TABLET PO SCH (08:13)
[2019-06-23] MEDS: LORazepam 1 MG TABLET PO PRN ×2 (08:23→13:43)
[2019-06-23] MEDS: MAG HYDROX/AL HYDROX/SIMETH ES 30 ML SUSPENSION UDCUP PO PRN (08:23)
[2019-06-23 08:25] VITALS: BP 104/73
[2019-06-23] MEDS: DOCUSATE SODIUM 100 MG CAPSULE PO PRN (13:43)
[2019-06-23 16:08] VITALS: BP 108/73
[2019-06-23] MEDS: QUEtiapine FUMARATE 200 MG TABLET PO SCH (20:25)
[2019-06-23] MEDS: ZOLPIDEM TARTRATE 10 MG TABLET PO PRN (20:59)
[2019-06-24 05:03] VITALS: BP 104/78
[2019-06-24] MEDS: SERTRALINE HCL 100 MG TABLET PO SCH (08:02)
[2019-06-24] MEDS: QUEtiapine FUMARATE 25 MG TABLET PO SCH (08:02)
[2019-06-24 08:08] VITALS: BP 117/48
[2019-06-24] MEDS: MAGNESIUM HYDROXIDE SUSPENSION 30 ML UDCUP PO PRN (09:37)
[2019-06-24] MEDS ORDERED: SERT100T12 PO (11:15)
[2019-06-24] MEDS ORDERED: QUET25TA PO (11:15)
== END 2019-06-24 12:00 | disposition home or self-care (01) | DRG 885 ==
LOC: B2S 18:37 → B2X 21:48
PROVIDERS: ATTEND Psychiatry & Neurology Child & Adolescent Psychiatry
DX: F31.4 Bipolar disorder, current episode depressed, severe, without psychotic features (principal); R45.851 Suicidal ideations; F10.10 Alcohol abuse, uncomplicated; Y90.9 Presence of alcohol in blood, level not specified; K73.9 Chronic hepatitis, unspecified; F19.10 Other psychoactive substance abuse, uncomplicated; E78.5 Hyperlipidemia, unspecified; E83.51 Hypocalcemia; F41.9 Anxiety disorder, unspecified; R74.0 Nonspecific elevation of levels of transaminase and lactic acid dehydrogenase [LDH]; Z91.5 Personal history of self-harm; Z86.15 Personal history of latent tuberculosis infection; Z59.0 Homelessness
CPT/HCPCS: 83036; 84439; 84443; 87081

== ENCOUNTER 2019-06-30 15:23 | Inpatient (IN) | payer MEDICARE, MEDICAID ==
[~2019-06-30] VITALS: Ht 177.8 cm; Wt 87.6 kg
[~2019-06-30 15:23] MED LIST changes: -BUPR-93 PO; +SERT100T12 PO; -SERT50TA12 PO
[2019-06-30] MEDS ORDERED: HALOPERIDOL 5 MG TABLET PO PRN (17:15)
[2019-06-30 17:27] VITALS: BP 114/87
[2019-06-30] MEDS: LORazepam 2 MG TABLET PO PRN (20:14)
[2019-06-30 23:15] VITALS: BP 119/91
[2019-07-01 00:38] VITALS: BP 100/71
[2019-07-01 07:56] LABS: BASOPHILS % (AUTO) 0.6 % (0.0-2.0); EOSINOPHILS % (AUTO) 3.7 % (1.0-6.0); HEMATOCRIT 51.9 % (41-53); HEMOGLOBIN 17.4 g/dL (13.5-17.5); LYMPHOCYTES # (AUTO) 3.5 K/uL (1.0-4.8); LYMPHOCYTES % (AUTO) 38.2 % (22.0-44.0); MEAN CORPUSCULAR HEMOGLOBIN 33.3 pg (26.0-34.0); MEAN CORPUSCULAR HGB CONC 33.5 G/dL (31.0-37.0); MEAN CORPUSCULAR VOLUME 99 fL (80-100); MONOCYTES # (AUTO) 0.8 K/uL (0.1-1.0); MONOCYTES % (AUTO) 8.5 % (2.0-9.0); NEUTROPHILS # (AUTO) 4.5 K/uL (1.8-7.7); PLATELET COUNT (AUTO) 315 K/uL (150-450); RED BLOOD CELL COUNT(AUTO) 5.22 MIL/uL (4.50-5.90); RED CELL DISTRIBUTION WIDTH 12.9 % (11.5-14.5)
[2019-07-01 08:02] LABS: HEMOGLOBIN A1C 5.4 % (3.8-5.6)
[2019-07-01 08:16] LABS: ALANINE AMINOTRANSFERASE 53 U/L (12-78); ALBUMIN 4.1 g/dL (3.4-5.0); ALKALINE PHOSPHATASE 56 U/L (46-116); ANION GAP 13 mmol/L (8-16); ASPARTATE AMINOTRANSFERASE 35 U/L (15-37); BILIRUBIN,TOTAL 0.6 mg/dL (0.1-1.0); CALCIUM, TOTAL 9.4 mg/dL (8.8-10.5); CARBON DIOXIDE 23 mmol/L (22-29); CHLORIDE 102 mmol/L (98-107); CHOL/HDL RATIO 3.4 (4.2-7.3); CHOLESTEROL 186 mg/dL (131-200); CREATININE 1.07 mg/dL (0.60-1.30); FREE T4 (FREE THYROXINE) 1.05 ng/dL (0.76-1.46); GLOMERULAR FILTR. RATE CALC > 60 mL/min (>60); GLUCOSE,RANDOM 92 mg/dL (70-110); HDL CHOLESTEROL 55 mg/dL (40-60); LDL CHOL (CALC.) 107 mg/dL (0-130); POTASSIUM 4.1 mmol/L (3.5-5.1); SODIUM SERUM 138 mmol/L (136-145); THYROID STIMULATING HORMONE 4.08 uIU/mL (0.36-3.74); TOTAL PROTEIN, SERUM 8.3 g/dL (6.4-8.2); TRIGLYCERIDES 122 mg/dL (15-150); UREA NITROGEN, BLOOD 15 mg/dL (7-18)
[2019-07-01] MEDS: LORazepam 2 MG TABLET PO PRN ×2 (09:16→19:14)
[2019-07-01 09:18] VITALS: BP 100/67
[2019-07-01] MEDS: SERTRALINE HCL 100 MG TABLET PO SCH (10:15)
[2019-07-01] MEDS: QUEtiapine FUMARATE 25 MG TABLET PO SCH (10:16)
[2019-07-01] MEDS ORDERED: NICOTINE 14 MG/24 HOUR PATCH TD PRN (11:30)
[2019-07-01] MEDS ORDERED: MAG HYDROX/AL HYDROX/SIMETH ES 30 ML SUSPENSION UDCUP PO PRN (11:30)
[2019-07-01] MEDS ORDERED: LOPERAMIDE HCL 2 MG CAPSULE PO PRN (11:30)
[2019-07-01] MEDS ORDERED: IBUPROFEN 400 MG TABLET PO PRN (11:30)
[2019-07-01] MEDS ORDERED: DOCUSATE SODIUM 100 MG CAPSULE PO PRN (11:30)
[2019-07-01] MEDS ORDERED: CloNIDine HCL 0.1 MG TABLET PO PRN (11:30)
[2019-07-01] MEDS ORDERED: ONDANSETRON HCL 4 MG TABLET PO PRN (11:30)
[2019-07-01] MEDS ORDERED: GuaiFENesin/D-METHORPHAN [SUGAR-FREE] 200-20MG/10 ML SYRUP UDCUP PO PRN (11:30)
[2019-07-01] MEDS ORDERED: ACETAMINOPHEN 325 MG TABLET PO PRN (11:30)
[2019-07-01] MEDS ORDERED: PETROLATUM,WHITE 28 GM JELLY TP PRN (11:30)
[2019-07-01] MEDS ORDERED: ALBUTEROL SULFATE HFA 90 MCG/PUFF 8 GM INHALER IH PRN (11:30)
[2019-07-01 16:26] VITALS: BP 114/74
[2019-07-01] MEDS: MAGNESIUM HYDROXIDE SUSPENSION 30 ML UDCUP PO PRN (17:01)
[2019-07-01] MEDS: QUEtiapine FUMARATE 200 MG TABLET PO SCH (20:29)
[2019-07-01] MEDS: ZOLPIDEM TARTRATE 10 MG TABLET PO PRN (20:59)
[2019-07-02 06:08] VITALS: BP 120/67
[2019-07-02] MEDS: SERTRALINE HCL 100 MG TABLET PO SCH (08:27)
[2019-07-02] MEDS: QUEtiapine FUMARATE 25 MG TABLET PO SCH (08:27)
[2019-07-02 08:36] VITALS: BP 106/64
[2019-07-02] MEDS: LORazepam 2 MG TABLET PO PRN ×2 (09:10→16:15)
[2019-07-02 16:25] VITALS: BP 117/72
[2019-07-02] MEDS: QUEtiapine FUMARATE 200 MG TABLET PO SCH (20:23)
[2019-07-02] MEDS: ZOLPIDEM TARTRATE 10 MG TABLET PO PRN (20:47)
[2019-07-03 05:23] VITALS: BP 110/74
[2019-07-03 08:27] VITALS: BP 103/60
[2019-07-03] MEDS: SERTRALINE HCL 100 MG TABLET PO SCH (09:02)
[2019-07-03] MEDS: QUEtiapine FUMARATE 25 MG TABLET PO SCH (09:02)
[2019-07-03] MEDS: MAGNESIUM HYDROXIDE SUSPENSION 30 ML UDCUP PO PRN (10:20)
[2019-07-03] MEDS: LORazepam 2 MG TABLET PO PRN (11:13)
[2019-07-03 16:10] VITALS: BP 109/68
[2019-07-03] MEDS: QUEtiapine FUMARATE 200 MG TABLET PO SCH (20:26)
[2019-07-04 04:48] VITALS: BP 102/66
[2019-07-04] MEDS: SERTRALINE HCL 100 MG TABLET PO SCH (08:30)
[2019-07-04] MEDS: QUEtiapine FUMARATE 25 MG TABLET PO SCH (08:30)
[2019-07-04 09:31] VITALS: BP 100/61
[2019-07-04] MEDS: LORazepam 2 MG TABLET PO PRN (13:00)
[2019-07-04 16:15] VITALS: BP 112/81
[2019-07-04] MEDS: QUEtiapine FUMARATE 200 MG TABLET PO SCH (20:24)
[2019-07-04] MEDS: ZOLPIDEM TARTRATE 10 MG TABLET PO PRN (21:00)
[2019-07-05 06:08] VITALS: BP 117/65
[2019-07-05] MEDS: QUEtiapine FUMARATE 25 MG TABLET PO SCH (08:24)
[2019-07-05] MEDS: SERTRALINE HCL 100 MG TABLET PO SCH (08:24)
[2019-07-05 08:43] VITALS: BP 110/72
[2019-07-05] MEDS: MAGNESIUM HYDROXIDE SUSPENSION 30 ML UDCUP PO PRN (12:56)
[2019-07-05] MEDS: LORazepam 2 MG TABLET PO PRN (14:38)
[2019-07-05 16:53] VITALS: BP 112/70
[2019-07-05] MEDS: QUEtiapine FUMARATE 200 MG TABLET PO SCH (20:35)
[2019-07-05] MEDS: ZOLPIDEM TARTRATE 10 MG TABLET PO PRN (21:11)
[2019-07-06 05:57] VITALS: BP 148/89
[2019-07-06 08:33] VITALS: BP 100/68
[2019-07-06] MEDS: QUEtiapine FUMARATE 25 MG TABLET PO SCH (08:45)
[2019-07-06] MEDS: SERTRALINE HCL 100 MG TABLET PO SCH (08:45)
[2019-07-06] MEDS: MAGNESIUM HYDROXIDE SUSPENSION 30 ML UDCUP PO PRN (11:34)
[2019-07-06] MEDS: LORazepam 2 MG TABLET PO PRN ×2 (11:34→18:35)
[2019-07-06 16:08] VITALS: BP 108/71
[2019-07-06] MEDS: QUEtiapine FUMARATE 200 MG TABLET PO SCH (20:28)
[2019-07-06] MEDS: ZOLPIDEM TARTRATE 10 MG TABLET PO PRN (21:04)
[2019-07-07 06:07] VITALS: BP 103/64
[2019-07-07 08:13] VITALS: BP 113/66
[2019-07-07] MEDS: QUEtiapine FUMARATE 25 MG TABLET PO SCH (08:42)
[2019-07-07] MEDS: SERTRALINE HCL 100 MG TABLET PO SCH (08:42)
[2019-07-07] MEDS: MAGNESIUM HYDROXIDE SUSPENSION 30 ML UDCUP PO PRN (09:24)
[2019-07-07] MEDS: LORazepam 2 MG TABLET PO PRN (15:44)
[2019-07-07 16:12] VITALS: BP 129/86
[2019-07-07] MEDS: QUEtiapine FUMARATE 200 MG TABLET PO SCH (20:29)
[2019-07-07] MEDS: ZOLPIDEM TARTRATE 10 MG TABLET PO PRN (21:04)
[2019-07-08 04:51] VITALS: BP 97/56
[2019-07-08] MEDS: QUEtiapine FUMARATE 25 MG TABLET PO SCH (08:14)
[2019-07-08] MEDS: SERTRALINE HCL 100 MG TABLET PO SCH (08:14)
[2019-07-08 08:41] VITALS: BP 100/74
[2019-07-08] MEDS: MAGNESIUM HYDROXIDE SUSPENSION 30 ML UDCUP PO PRN (09:45)
[2019-07-08] MEDS: LORazepam 2 MG TABLET PO PRN ×2 (09:45→17:19)
[2019-07-08 16:09] VITALS: BP 107/57
[2019-07-08] MEDS: QUEtiapine FUMARATE 200 MG TABLET PO SCH (20:30)
[2019-07-08] MEDS: ZOLPIDEM TARTRATE 10 MG TABLET PO PRN (21:05)
[2019-07-09 06:23] VITALS: BP 106/65
[2019-07-09] MEDS: QUEtiapine FUMARATE 25 MG TABLET PO SCH (08:15)
[2019-07-09] MEDS: SERTRALINE HCL 100 MG TABLET PO SCH (08:15)
[2019-07-09 08:17] VITALS: BP 121/63
[2019-07-09] MEDS: MAGNESIUM HYDROXIDE SUSPENSION 30 ML UDCUP PO PRN (12:35)
[2019-07-09] MEDS: LORazepam 2 MG TABLET PO PRN ×2 (12:35→17:15)
[2019-07-09 16:30] VITALS: BP 128/82
[2019-07-09] MEDS: QUEtiapine FUMARATE 200 MG TABLET PO SCH (20:26)
[2019-07-10 01:10] VITALS: BP 104/63
[2019-07-10 08:19] VITALS: BP 108/60
[2019-07-10] MEDS: SERTRALINE HCL 100 MG TABLET PO SCH (09:08)
[2019-07-10] MEDS: QUEtiapine FUMARATE 25 MG TABLET PO SCH (09:14)
[2019-07-10] MEDS: MAGNESIUM HYDROXIDE SUSPENSION 30 ML UDCUP PO PRN (16:07)
[2019-07-10] MEDS: LORazepam 2 MG TABLET PO PRN (16:07)
[2019-07-10 16:27] VITALS: BP 108/70
[2019-07-10] MEDS: QUEtiapine FUMARATE 200 MG TABLET PO SCH (20:28)
[2019-07-10] MEDS: ZOLPIDEM TARTRATE 10 MG TABLET PO PRN (20:54)
[2019-07-11] MEDS: SERTRALINE HCL 100 MG TABLET PO SCH (08:46)
[2019-07-11] MEDS: QUEtiapine FUMARATE 25 MG TABLET PO SCH (08:46)
[2019-07-11 09:20] VITALS: BP 100/70
[2019-07-11] MEDS: LORazepam 2 MG TABLET PO PRN (12:09)
[2019-07-11] MEDS: MAGNESIUM HYDROXIDE SUSPENSION 30 ML UDCUP PO PRN (12:09)
[2019-07-11 16:10] VITALS: BP 98/72
[2019-07-11] MEDS: QUEtiapine FUMARATE 200 MG TABLET PO SCH (20:13)
[2019-07-11 21:23] VITALS: BP 110/74
[2019-07-11] MEDS: ZOLPIDEM TARTRATE 10 MG TABLET PO PRN (21:26)
[2019-07-12 00:51] VITALS: BP 88/54
[2019-07-12] MEDS: QUEtiapine FUMARATE 25 MG TABLET PO SCH (08:33)
[2019-07-12] MEDS: SERTRALINE HCL 100 MG TABLET PO SCH (08:33)
[2019-07-12 08:54] VITALS: BP 100/60
[2019-07-12] MEDS: LORazepam 2 MG TABLET PO PRN ×2 (10:59→16:46)
[2019-07-12] MEDS: MAGNESIUM HYDROXIDE SUSPENSION 30 ML UDCUP PO PRN (10:59)
[2019-07-12 16:12] VITALS: BP 117/72
[2019-07-12] MEDS: QUEtiapine FUMARATE 200 MG TABLET PO SCH (20:05)
[2019-07-12] MEDS: ZOLPIDEM TARTRATE 10 MG TABLET PO PRN (20:05)
[2019-07-13 07:17] VITALS: BP 108/68
[2019-07-13] MEDS: SERTRALINE HCL 100 MG TABLET PO SCH (08:25)
[2019-07-13] MEDS: QUEtiapine FUMARATE 25 MG TABLET PO SCH (08:25)
[2019-07-13] MEDS: MAGNESIUM HYDROXIDE SUSPENSION 30 ML UDCUP PO PRN (08:27)
[2019-07-13] MEDS: LORazepam 2 MG TABLET PO PRN (08:27)
[2019-07-13 08:30] VITALS: BP 100/67
== END 2019-07-13 14:05 | disposition home or self-care (01) | DRG 885 ==
LOC: B2X 17:07
PROVIDERS: ADMIT Psychiatry & Neurology Child & Adolescent Psychiatry; ATTEND Psychiatry & Neurology Child & Adolescent Psychiatry
DX: F31.4 Bipolar disorder, current episode depressed, severe, without psychotic features (principal); B18.2 Chronic viral hepatitis C; R45.851 Suicidal ideations; E03.9 Hypothyroidism, unspecified; E78.5 Hyperlipidemia, unspecified; F10.10 Alcohol abuse, uncomplicated; F41.9 Anxiety disorder, unspecified; R45.87 Impulsiveness; Z59.0 Homelessness
CPT/HCPCS: 83036; 84439; 84443; 87081

== ENCOUNTER 2019-07-21 19:16 | Emergency (ER) | payer MEDICAID, MEDICARE ==
[~2019-07-21] VITALS: Ht 177.8 cm; Wt 86.4 kg
[2019-07-21 22:09] LABS: BASOPHILS % (AUTO) 0.7 % (0.0-2.0); EOSINOPHILS % (AUTO) 2.4 % (1.0-6.0); HEMATOCRIT 48.4 % (41-53); HEMOGLOBIN 16.2 g/dL (13.5-17.5); LYMPHOCYTES # (AUTO) 2.2 K/uL (1.0-4.8); LYMPHOCYTES % (AUTO) 23.2 % (22.0-44.0); MEAN CORPUSCULAR HEMOGLOBIN 32.8 pg (26.0-34.0); MEAN CORPUSCULAR HGB CONC 33.5 G/dL (31.0-37.0); MEAN CORPUSCULAR VOLUME 98 fL (80-100); MONOCYTES # (AUTO) 0.9 K/uL (0.1-1.0); MONOCYTES % (AUTO) 9.2 % (2.0-9.0); NEUTROPHILS # (AUTO) 6.2 K/uL (1.8-7.7); NEUTROPHILS % (AUTO) 64.5 % (40.0-70.0); PLATELET COUNT (AUTO) 234 K/uL (150-450); RED BLOOD CELL COUNT(AUTO) 4.95 MIL/uL (4.50-5.90); RED CELL DISTRIBUTION WIDTH 12.9 % (11.5-14.5)
[2019-07-21 22:11] LABS: ANION GAP 7 mmol/L (8-16); CALCIUM, TOTAL 9.1 mg/dL (8.8-10.5); CARBON DIOXIDE 29 mmol/L (22-29); CHLORIDE 106 mmol/L (98-107); CREATININE 0.94 mg/dL (0.60-1.30); GLOMERULAR FILTR. RATE CALC > 60 mL/min (>60); GLUCOSE,RANDOM 111 mg/dL (70-110); POTASSIUM 4.1 mmol/L (3.5-5.1); SODIUM SERUM 142 mmol/L (136-145); UREA NITROGEN, BLOOD 9 mg/dL (7-18)
[2019-07-21 22:15] LABS: ALANINE AMINOTRANSFERASE 83 U/L (12-78); ALBUMIN 3.8 g/dL (3.4-5.0); ALKALINE PHOSPHATASE 75 U/L (46-116); ASPARTATE AMINOTRANSFERASE 56 U/L (15-37); BILIRUBIN,TOTAL 0.4 mg/dL (0.1-1.0); TOTAL PROTEIN, SERUM 7.7 g/dL (6.4-8.2)
[2019-07-22] MEDS ORDERED: QUEtiapine FUMARATE 100 MG TABLET PO ONE
[2019-07-22 05:30] VITALS: BP 125/69
== END 2019-07-22 05:44 | disposition home or self-care (01) ==
LOC: EMS 19:16
DX: F32.9 Major depressive disorder, single episode, unspecified (principal); Z79.899 Other long term (current) drug therapy
CPT/HCPCS: 80053; 85025; 99285; G0480

== ENCOUNTER 2019-08-15 19:00 | Inpatient (IN) | payer MEDICARE, MEDICAID ==
[~2019-08-15] VITALS: Ht 177.8 cm; Wt 92.4 kg
[2019-08-15] MEDS ORDERED: HALOPERIDOL 5 MG TABLET PO PRN (19:15)
[2019-08-15 20:37] VITALS: BP 108/85
[2019-08-15] MEDS: LORazepam 2 MG TABLET PO PRN (21:23)
[2019-08-15] MEDS: QUEtiapine FUMARATE 200 MG TABLET PO SCH (21:23)
[2019-08-16 00:22] VITALS: BP 104/56
[2019-08-16 07:18] LABS: BASOPHILS % (AUTO) 0.5 % (0.0-2.0); EOSINOPHILS % (AUTO) 4.1 % (1.0-6.0); HEMATOCRIT 41.7 % (41-53); HEMOGLOBIN 14.3 g/dL (13.5-17.5); LYMPHOCYTES # (AUTO) 2.4 K/uL (1.0-4.8); LYMPHOCYTES % (AUTO) 35.5 % (22.0-44.0); MEAN CORPUSCULAR HEMOGLOBIN 33.7 pg (26.0-34.0); MEAN CORPUSCULAR HGB CONC 34.3 G/dL (31.0-37.0); MEAN CORPUSCULAR VOLUME 98 fL (80-100); MONOCYTES # (AUTO) 0.5 K/uL (0.1-1.0); NEUTROPHILS # (AUTO) 3.5 K/uL (1.8-7.7); NEUTROPHILS % (AUTO) 51.9 % (40.0-70.0); PLATELET COUNT (AUTO) 211 K/uL (150-450); RED BLOOD CELL COUNT(AUTO) 4.25 MIL/uL (4.50-5.90); RED CELL DISTRIBUTION WIDTH 13.2 % (11.5-14.5)
[2019-08-16 07:43] LABS: HEMOGLOBIN A1C 5.8 % (3.8-5.6)
[2019-08-16 07:55] LABS: ALANINE AMINOTRANSFERASE 103 U/L (12-78); ALBUMIN 3.5 g/dL (3.4-5.0); ALKALINE PHOSPHATASE 68 U/L (46-116); ANION GAP 10 mmol/L (8-16); ASPARTATE AMINOTRANSFERASE 67 U/L (15-37); BILIRUBIN,TOTAL 0.5 mg/dL (0.1-1.0); CALCIUM, TOTAL 8.8 mg/dL (8.8-10.5); CARBON DIOXIDE 25 mmol/L (22-29); CHLORIDE 105 mmol/L (98-107); CHOL/HDL RATIO 4.1 (4.2-7.3); CHOLESTEROL 181 mg/dL (131-200); CREATININE 0.85 mg/dL (0.60-1.30); FREE T4 (FREE THYROXINE) 1.01 ng/dL (0.76-1.46); GLOMERULAR FILTR. RATE CALC > 60 mL/min (>60); GLUCOSE,RANDOM 86 mg/dL (70-110); HDL CHOLESTEROL 44 mg/dL (40-60); LDL CHOL (CALC.) 115 mg/dL (0-130); POTASSIUM 4.3 mmol/L (3.5-5.1); SODIUM SERUM 140 mmol/L (136-145); THYROID STIMULATING HORMONE 1.58 uIU/mL (0.36-3.74); TOTAL PROTEIN, SERUM 6.6 g/dL (6.4-8.2); TRIGLYCERIDES 109 mg/dL (15-150); UREA NITROGEN, BLOOD 14 mg/dL (7-18)
[2019-08-16 08:13] VITALS: BP 110/69
[2019-08-16] MEDS ORDERED: PETROLATUM,WHITE 28 GM JELLY TP PRN (08:15)
[2019-08-16] MEDS ORDERED: MAG HYDROX/AL HYDROX/SIMETH ES 30 ML SUSPENSION UDCUP PO PRN (08:15)
[2019-08-16] MEDS ORDERED: DOCUSATE SODIUM 100 MG CAPSULE PO PRN (08:15)
[2019-08-16] MEDS ORDERED: ONDANSETRON HCL 4 MG TABLET PO PRN (08:15)
[2019-08-16] MEDS ORDERED: GuaiFENesin/D-METHORPHAN [SUGAR-FREE] 200-20MG/10 ML SYRUP UDCUP PO PRN (08:15)
[2019-08-16] MEDS ORDERED: ALBUTEROL SULFATE HFA 90 MCG/PUFF 8 GM INHALER IH PRN (08:15)
[2019-08-16] MEDS ORDERED: NICOTINE 14 MG/24 HOUR PATCH TD PRN (08:15)
[2019-08-16] MEDS ORDERED: LOPERAMIDE HCL 2 MG CAPSULE PO PRN (08:15)
[2019-08-16] MEDS ORDERED: ACETAMINOPHEN 325 MG TABLET PO PRN (08:15)
[2019-08-16] MEDS ORDERED: CloNIDine HCL 0.1 MG TABLET PO PRN (08:15)
[2019-08-16] MEDS ORDERED: IBUPROFEN 400 MG TABLET PO PRN (08:15)
[2019-08-16] MEDS: QUEtiapine FUMARATE 25 MG TABLET PO SCH (08:24)
[2019-08-16] MEDS: SERTRALINE HCL 100 MG TABLET PO SCH (08:24)
[2019-08-16] MEDS: LORazepam 2 MG TABLET PO PRN ×2 (10:11→15:42)
[2019-08-16] MEDS: MAGNESIUM HYDROXIDE SUSPENSION 30 ML UDCUP PO PRN (10:11)
[2019-08-16 16:13] VITALS: BP 119/70
[2019-08-16] MEDS: QUEtiapine FUMARATE 200 MG TABLET PO SCH (20:29)
[2019-08-17 00:05] VITALS: BP 100/60
[2019-08-17 08:04] VITALS: BP 111/74
[2019-08-17] MEDS: MAGNESIUM HYDROXIDE SUSPENSION 30 ML UDCUP PO PRN (08:07)
[2019-08-17] MEDS: SERTRALINE HCL 100 MG TABLET PO SCH (08:08)
[2019-08-17] MEDS: QUEtiapine FUMARATE 25 MG TABLET PO SCH (08:11)
[2019-08-17] MEDS: LORazepam 2 MG TABLET PO PRN ×2 (08:11→12:53)
[2019-08-17 12:58] VITALS: BP 104/74
[2019-08-17 16:04] VITALS: BP 139/82
[2019-08-17] MEDS: ZOLPIDEM TARTRATE 10 MG TABLET PO PRN (20:13)
[2019-08-17] MEDS: QUEtiapine FUMARATE 200 MG TABLET PO SCH (20:13)
[2019-08-18 06:05] VITALS: BP 102/66
[2019-08-18] MEDS: QUEtiapine FUMARATE 25 MG TABLET PO SCH (08:01)
[2019-08-18] MEDS: MAGNESIUM HYDROXIDE SUSPENSION 30 ML UDCUP PO PRN ×2 (08:01→13:20)
[2019-08-18] MEDS: SERTRALINE HCL 100 MG TABLET PO SCH (08:01)
[2019-08-18] MEDS: LORazepam 2 MG TABLET PO PRN ×2 (08:01→16:29)
[2019-08-18 08:34] VITALS: BP 112/77
[2019-08-18 08:35] LABS: APPEARANCE,URINE CLEAR (CLEAR); BILIRUBIN,URINE NEGATIVE (NEGATIVE); GLUCOSE, URINE (UA) NEGATIVE (NEGATIVE); KETONES,URINE NEGATIVE (NEGATIVE); LEUKOCYTE ESTERASE ,URINE NEGATIVE (NEGATIVE); NITRATE,URINE NEGATIVE (NEGATIVE); OCCULT BLOOD,URINE NEGATIVE (NEGATIVE); PH,URINE 7.5 (5.0-8.0); PROTEIN,URINE NEGATIVE (NEGATIVE); UROBILINOGEN,URINE 0.2 mg/dL (<=1.0)
[2019-08-18 08:39] LABS: AMPHET/METH SCREEN,URINE NEGATIVE (NEGATIVE); BARBITURATE SCREEN, URINE NEGATIVE (NEGATIVE); BENZODIAZEPINES SCREEN,URINE NEGATIVE (NEGATIVE); CANNABINOID SCREEN,URINE NEGATIVE (NEGATIVE); COCAINE SCREEN,URINE NEGATIVE (NEGATIVE); METHADONE SCREEN, URINE NEGATIVE (NEGATIVE); OPIATE SCREEN,URINE NEGATIVE (NEGATIVE)
[2019-08-18 08:41] LABS: PHENCYCLIDINE SCREEN,URINE NEGATIVE (NEGATIVE)
[2019-08-18 16:11] VITALS: BP_SYST 111; BP_DIAS 110; BP_DIAS 89
[2019-08-18] MEDS: QUEtiapine FUMARATE 200 MG TABLET PO SCH (20:32)
[2019-08-18] MEDS: ZOLPIDEM TARTRATE 10 MG TABLET PO PRN (21:04)
[2019-08-19 00:35] VITALS: BP 108/85
[2019-08-19 08:11] VITALS: BP 106/82
[2019-08-19] MEDS: QUEtiapine FUMARATE 25 MG TABLET PO SCH (08:27)
[2019-08-19] MEDS: SERTRALINE HCL 100 MG TABLET PO SCH (08:27)
[2019-08-19] MEDS: OMEGA-3/DHA/EPA/FISH OIL 1,000 MG CAPSULE PO SCH (08:27)
[2019-08-19] MEDS: LORazepam 2 MG TABLET PO PRN (09:00)
[2019-08-19] MEDS: MAGNESIUM HYDROXIDE SUSPENSION 30 ML UDCUP PO PRN (09:00)
[2019-08-19 16:11] VITALS: BP 108/81
[2019-08-19] MEDS: QUEtiapine FUMARATE 200 MG TABLET PO SCH (20:04)
[2019-08-19] MEDS: ZOLPIDEM TARTRATE 10 MG TABLET PO PRN (21:02)
[2019-08-20 06:26] VITALS: BP 112/73
[2019-08-20] MEDS: QUEtiapine FUMARATE 25 MG TABLET PO SCH (08:15)
[2019-08-20] MEDS: SERTRALINE HCL 100 MG TABLET PO SCH (08:15)
[2019-08-20] MEDS: OMEGA-3/DHA/EPA/FISH OIL 1,000 MG CAPSULE PO SCH (08:15)
[2019-08-20 08:32] VITALS: BP 115/72
[2019-08-20] MEDS ORDERED: MAGNESIUM HYDROXIDE SUSPENSION 30 ML UDCUP PO PRN (09:00)
[2019-08-20] MEDS ORDERED: SERT100T12 PO (10:35)
[2019-08-20] MEDS ORDERED: QUET25TA PO (10:35)
[2019-08-20] MEDS ORDERED: QUET200T PO ×3 (10:35→10:50)
== END 2019-08-20 11:45 | disposition home or self-care (01) | DRG 885 ==
LOC: B2X 19:11 → UNDOADMIN 19:11 → B2X 19:15 → UNDOADMIN 19:15 → UNDODISIN 08-20 11:45
PROVIDERS: ADMIT Psychiatry & Neurology Child & Adolescent Psychiatry; ATTEND Psychiatry & Neurology Child & Adolescent Psychiatry
DX: F31.4 Bipolar disorder, current episode depressed, severe, without psychotic features (principal); R45.851 Suicidal ideations; B18.2 Chronic viral hepatitis C; E78.5 Hyperlipidemia, unspecified; Z86.15 Personal history of latent tuberculosis infection; F19.10 Other psychoactive substance abuse, uncomplicated; J44.9 Chronic obstructive pulmonary disease, unspecified; F20.9 Schizophrenia, unspecified; B19.20 Unspecified viral hepatitis C without hepatic coma; F15.90 Other stimulant use, unspecified, uncomplicated; F12.90 Cannabis use, unspecified, uncomplicated; Z91.14 Patient's other noncompliance with medication regimen
CPT/HCPCS: 80307; 83036; 84439; 84443; 87081

== ENCOUNTER 2019-09-05 07:57 | Inpatient (IN) | payer MEDICARE, MEDICAID ==
[~2019-09-05] VITALS: Ht 177.8 cm; Wt 90.4 kg
[2019-09-05] MEDS ORDERED: QUEtiapine FUMARATE 100 MG TABLET PO PRN (20:15)
[2019-09-05] MEDS ORDERED: ZOLPIDEM TARTRATE 10 MG TABLET PO PRN (20:15)
[2019-09-05 20:51] VITALS: BP 125/85
[2019-09-06 01:01] VITALS: BP 120/78
[2019-09-06 03:56] VITALS: BP 113/82
[2019-09-06] MEDS: LORazepam 1 MG TABLET PO PRN ×2 (03:57→10:44)
[2019-09-06 07:54] LABS: BASOPHILS % (AUTO) 0.7 % (0.0-2.0); EOSINOPHILS % (AUTO) 4.9 % (1.0-6.0); HEMATOCRIT 40.1 % (41-53); HEMOGLOBIN 13.9 g/dL (13.5-17.5); LYMPHOCYTES % (AUTO) 28.6 % (22.0-44.0); MEAN CORPUSCULAR HGB CONC 34.8 G/dL (31.0-37.0); MEAN CORPUSCULAR VOLUME 98 fL (80-100); MONOCYTES # (AUTO) 0.6 K/uL (0.1-1.0); MONOCYTES % (AUTO) 8.7 % (2.0-9.0); NEUTROPHILS % (AUTO) 57.1 % (40.0-70.0); PLATELET COUNT (AUTO) 274 K/uL (150-450)
[2019-09-06 08:06] LABS: HEMOGLOBIN A1C 5.6 % (3.8-5.6)
[2019-09-06 08:26] VITALS: BP 120/79
[2019-09-06 08:29] LABS: ALANINE AMINOTRANSFERASE 130 U/L (12-78); ALBUMIN 3.3 g/dL (3.4-5.0); ALKALINE PHOSPHATASE 50 U/L (46-116); ANION GAP 9 mmol/L (8-16); ASPARTATE AMINOTRANSFERASE 143 U/L (15-37); BILIRUBIN,TOTAL 0.6 mg/dL (0.1-1.0); CALCIUM, TOTAL 8.6 mg/dL (8.8-10.5); CARBON DIOXIDE 27 mmol/L (22-29); CHLORIDE 105 mmol/L (98-107); CHOL/HDL RATIO 2.9 (4.2-7.3); CHOLESTEROL 150 mg/dL (131-200); FREE T4 (FREE THYROXINE) 1.07 ng/dL (0.76-1.46); GLOMERULAR FILTR. RATE CALC > 60 mL/min (>60); GLUCOSE,RANDOM 98 mg/dL (70-110); HDL CHOLESTEROL 51 mg/dL (40-60); LDL CHOL (CALC.) 90 mg/dL (0-130); POTASSIUM 3.6 mmol/L (3.5-5.1); SODIUM SERUM 141 mmol/L (136-145); THYROID STIMULATING HORMONE 1.25 uIU/mL (0.36-3.74); TRIGLYCERIDES 43 mg/dL (15-150); UREA NITROGEN, BLOOD 16 mg/dL (7-18)
[2019-09-06] MEDS ORDERED: LOPERAMIDE HCL 2 MG CAPSULE PO PRN ×2 (11:00)
[2019-09-06] MEDS ORDERED: ACETAMINOPHEN 325 MG TABLET PO PRN ×2 (11:00)
[2019-09-06] MEDS ORDERED: ONDANSETRON HCL 4 MG TABLET PO PRN ×2 (11:00)
[2019-09-06] MEDS ORDERED: DOCUSATE SODIUM 100 MG CAPSULE PO PRN ×2 (11:00)
[2019-09-06] MEDS ORDERED: GuaiFENesin/D-METHORPHAN [SUGAR-FREE] 200-20MG/10 ML SYRUP UDCUP PO PRN ×2 (11:00)
[2019-09-06] MEDS ORDERED: MAGNESIUM HYDROXIDE SUSPENSION 30 ML UDCUP PO PRN ×2 (11:00)
[2019-09-06] MEDS ORDERED: IBUPROFEN 400 MG TABLET PO PRN ×2 (11:00)
[2019-09-06] MEDS ORDERED: NICOTINE 14 MG/24 HOUR PATCH TD PRN ×2 (11:00)
[2019-09-06] MEDS ORDERED: PETROLATUM,WHITE 28 GM JELLY TP PRN ×2 (11:00)
[2019-09-06] MEDS ORDERED: ALBUTEROL SULFATE HFA 90 MCG/PUFF 8 GM INHALER IH PRN ×2 (11:00)
[2019-09-06] MEDS ORDERED: MAG HYDROX/AL HYDROX/SIMETH ES 30 ML SUSPENSION UDCUP PO PRN ×2 (11:00)
[2019-09-06] MEDS ORDERED: CloNIDine HCL 0.1 MG TABLET PO PRN ×2 (11:00)
== END 2019-09-06 12:40 | disposition home or self-care (01) | DRG 885 ==
LOC: B2S 20:37 → B2X 09-06 09:34
PROVIDERS: ADMIT Psychiatry & Neurology Psychiatry; ATTEND Psychiatry & Neurology Child & Adolescent Psychiatry
DX: F31.9 Bipolar disorder, unspecified (principal); B18.2 Chronic viral hepatitis C; E78.5 Hyperlipidemia, unspecified; J44.9 Chronic obstructive pulmonary disease, unspecified; Z86.15 Personal history of latent tuberculosis infection; Z81.8 Family history of other mental and behavioral disorders
CPT/HCPCS: 83036; 84439; 84443; 87081

== ENCOUNTER 2019-12-06 16:56 | Emergency (ER) | payer MEDICARE, MEDICAID ==
[~2019-12-06] VITALS: Ht 177.8 cm; Wt 77.3 kg
[2019-12-06 18:06] LABS: COVID AG,FIA SOURCE NASOPHARYNGEAL
[2019-12-06 18:36] LABS: BASOPHILS % (AUTO) 0.2 % (0.0-2.0); EOSINOPHILS % (AUTO) 0.1 % (1.0-6.0); HEMATOCRIT 42.4 % (41-53); HEMOGLOBIN 14.5 g/dL (13.5-17.5); LYMPHOCYTES # (AUTO) 1.6 K/uL (1.0-4.8); LYMPHOCYTES % (AUTO) 10.5 % (22.0-44.0); MEAN CORPUSCULAR HEMOGLOBIN 32.7 pg (26.0-34.0); MEAN CORPUSCULAR HGB CONC 34.1 G/dL (31.0-37.0); MEAN CORPUSCULAR VOLUME 96 fL (80-100); MONOCYTES # (AUTO) 1.1 K/uL (0.1-1.0); MONOCYTES % (AUTO) 7.3 % (2.0-9.0); NEUTROPHILS # (AUTO) 12.4 K/uL (1.8-7.7); NEUTROPHILS % (AUTO) 81.9 % (40.0-70.0); PLATELET COUNT (AUTO) 286 K/uL (150-450); RED BLOOD CELL COUNT(AUTO) 4.43 MIL/uL (4.50-5.90); RED CELL DISTRIBUTION WIDTH 12.8 % (11.5-14.5)
[2019-12-06 18:48] LABS: ANION GAP 11 mmol/L (8-16); CALCIUM, TOTAL 9.7 mg/dL (8.8-10.5); CARBON DIOXIDE 27 mmol/L (22-29); CHLORIDE 107 mmol/L (98-107); CREATININE 1.06 mg/dL (0.60-1.30); GLOMERULAR FILTR. RATE CALC > 60 mL/min (>60); GLUCOSE,RANDOM 102 mg/dL (70-110); SODIUM SERUM 145 mmol/L (136-145); UREA NITROGEN, BLOOD 19 mg/dL (7-18)
[2019-12-06 18:53] LABS: ALANINE AMINOTRANSFERASE 89 U/L (12-78); ALBUMIN 3.5 g/dL (3.4-5.0); ALKALINE PHOSPHATASE 50 U/L (46-116); ASPARTATE AMINOTRANSFERASE 73 U/L (15-37); BILIRUBIN,TOTAL 0.9 mg/dL (0.1-1.0)
[2019-12-06 19:35] VITALS: BP 118/69
== END 2019-12-06 19:54 | disposition home or self-care (01) ==
LOC: EMS 16:57
DX: F25.9 Schizoaffective disorder, unspecified (principal); F17.210 Nicotine dependence, cigarettes, uncomplicated; Z20.828 Contact with and (suspected) exposure to other viral communicable diseases
CPT/HCPCS: 36415; 80053; 85025; 87426; 99284; 99406; G0480

== ENCOUNTER 2019-12-24 20:07 | Emergency (ER) | payer MEDICARE, MEDICAID ==
[~2019-12-24] VITALS: Ht 177.8 cm; Wt 90.9 kg
[2019-12-24 21:11] LABS: BASOPHILS % (AUTO) 0.8 % (0.0-2.0); EOSINOPHILS % (AUTO) 3.2 % (1.0-6.0); HEMATOCRIT 40.8 % (41-53); HEMOGLOBIN 13.4 g/dL (13.5-17.5); LYMPHOCYTES % (AUTO) 27.4 % (22.0-44.0); MEAN CORPUSCULAR HEMOGLOBIN 31.8 pg (26.0-34.0); MEAN CORPUSCULAR HGB CONC 32.9 G/dL (31.0-37.0); MEAN CORPUSCULAR VOLUME 97 fL (80-100); MONOCYTES % (AUTO) 13.2 % (2.0-9.0); NEUTROPHILS # (AUTO) 4.1 K/uL (1.8-7.7); NEUTROPHILS % (AUTO) 55.4 % (40.0-70.0); PLATELET COUNT (AUTO) 353 K/uL (150-450); RED BLOOD CELL COUNT(AUTO) 4.22 MIL/uL (4.50-5.90); RED CELL DISTRIBUTION WIDTH 13.3 % (11.5-14.5)
[2019-12-24 21:25] LABS: ANION GAP 4 mmol/L (8-16); CALCIUM, TOTAL 8.8 mg/dL (8.8-10.5); CARBON DIOXIDE 31 mmol/L (22-29); CHLORIDE 100 mmol/L (98-107); CREATININE 1.35 mg/dL (0.60-1.30); GLOMERULAR FILTR. RATE CALC 56 mL/min (>60); GLUCOSE,RANDOM 98 mg/dL (70-110); POTASSIUM 4.4 mmol/L (3.5-5.1); SODIUM SERUM 135 mmol/L (136-145); UREA NITROGEN, BLOOD 16 mg/dL (7-18)
[2019-12-24 21:30] LABS: ALANINE AMINOTRANSFERASE 125 U/L (12-78); ALBUMIN 3.4 g/dL (3.4-5.0); ALKALINE PHOSPHATASE 61 U/L (46-116); ASPARTATE AMINOTRANSFERASE 87 U/L (15-37); BILIRUBIN,TOTAL 0.3 mg/dL (0.1-1.0); TOTAL PROTEIN, SERUM 7.2 g/dL (6.4-8.2)
[2019-12-24 22:12] VITALS: BP 126/76
== END 2019-12-24 22:15 | disposition home or self-care (01) ==
LOC: EMS 20:07
DX: F32.9 Major depressive disorder, single episode, unspecified (principal); F17.210 Nicotine dependence, cigarettes, uncomplicated
CPT/HCPCS: 36415; 80053; 85025; 99284; G0480

== ENCOUNTER 2022-06-14 17:57 | Inpatient (IN) | payer MEDICARE, MEDICAID ==
[~2022-06-14 17:57] MED LIST changes: -QUET25TA PO; +SERT-162 PO; -SERT100T12 PO
[2022-06-14] MEDS ORDERED: HALOPERIDOL LACTATE 5 MG/ML VIAL IM ONE (18:15)
[2022-06-14] MEDS ORDERED: LORazepam 2 MG/ML VIAL IM ONE (18:15)
[2022-06-14] MEDS ORDERED: DiphenhydrAMINE HCL 50 MG/ML VIAL IM ONE (18:15)
[2022-06-14] MEDS ORDERED: DiphenhydrAMINE HCL 50 MG/ML VIAL ONE (18:20)
[2022-06-14] MEDS ORDERED: HALOPERIDOL LACTATE 5 MG/ML VIAL ONE (18:20)
[2022-06-14] MEDS ORDERED: LORazepam 2 MG/ML VIAL ONE (18:20)
[2022-06-14] MEDS ORDERED: HALOPERIDOL 5 MG TABLET PO PRN (18:30)
[2022-06-14] MEDS ORDERED: ALBUTEROL SULFATE HFA 90 MCG/PUFF 8 GM INHALER IH PRN (22:00)
[2022-06-14] MEDS ORDERED: LOPERAMIDE HCL 2 MG CAPSULE PO PRN (22:00)
[2022-06-14] MEDS ORDERED: DOCUSATE SODIUM 100 MG CAPSULE PO PRN (22:00)
[2022-06-14] MEDS ORDERED: MAGNESIUM HYDROXIDE SUSPENSION 30 ML UDCUP PO PRN (22:00)
[2022-06-14] MEDS ORDERED: MAG HYDROX/AL HYDROX/SIMETH ES 30 ML SUSPENSION UDCUP PO PRN (22:00)
[2022-06-14] MEDS ORDERED: CloNIDine HCL 0.1 MG TABLET PO PRN (22:00)
[2022-06-14] MEDS ORDERED: ACETAMINOPHEN 325 MG TABLET PO PRN (22:00)
[2022-06-14] MEDS ORDERED: ONDANSETRON HCL 4 MG TABLET PO PRN (22:00)
[2022-06-14] MEDS ORDERED: PETROLATUM,WHITE 28 GM JELLY TP PRN (22:00)
[2022-06-14] MEDS ORDERED: GuaiFENesin/D-METHORPHAN [SUGAR-FREE] 200-20MG/10 ML SYRUP UDCUP PO PRN (22:00)
[2022-06-14] MEDS ORDERED: IBUPROFEN 400 MG TABLET PO PRN (22:00)
[2022-06-14] MEDS ORDERED: NICOTINE 14 MG/24 HOUR PATCH TD PRN (22:00)
[2022-06-15 07:47] LABS: BASOPHILS % (AUTO) 0.8 % (0.0-2.0); EOSINOPHILS % (AUTO) 0.7 % (1.0-6.0); HEMATOCRIT 43.8 % (41-53); HEMOGLOBIN 15.1 g/dL (13.5-17.5); LYMPHOCYTES # (AUTO) 2.3 K/uL (1.0-4.8); LYMPHOCYTES % (AUTO) 23.8 % (22.0-44.0); MEAN CORPUSCULAR HEMOGLOBIN 33.1 pg (26.0-34.0); MEAN CORPUSCULAR HGB CONC 34.5 G/dL (31.0-37.0); MEAN CORPUSCULAR VOLUME 96 fL (80-100); MONOCYTES # (AUTO) 0.7 K/uL (0.1-1.0); MONOCYTES % (AUTO) 7.7 % (2.0-9.0); NEUTROPHILS # (AUTO) 6.5 K/uL (1.8-7.7); PLATELET COUNT (AUTO) 266 K/uL (150-450); RED BLOOD CELL COUNT(AUTO) 4.56 MIL/uL (4.50-5.90); RED CELL DISTRIBUTION WIDTH 14.2 % (11.5-14.5)
[2022-06-15 08:10] LABS: ALANINE AMINOTRANSFERASE 27 U/L (12-78); ALBUMIN 4.6 g/dL (3.4-5.0); ALKALINE PHOSPHATASE 60 U/L (46-116); ANION GAP 14 mmol/L (8-16); ASPARTATE AMINOTRANSFERASE 47 U/L (15-37); BILIRUBIN,TOTAL 1.6 mg/dL (0.1-1.0); CALCIUM, TOTAL 9.9 mg/dL (8.8-10.5); CARBON DIOXIDE 26 mmol/L (22-29); CHLORIDE 106 mmol/L (98-107); CHOL/HDL RATIO 4.9 (4.2-7.3); CHOLESTEROL 207 mg/dL (131-200); CREATININE 1.14 mg/dL (0.60-1.30); FREE T4 (FREE THYROXINE) 1.46 ng/dL (0.76-1.46); GLOMERULAR FILTR. RATE CALC > 60 mL/min (>60); GLUCOSE,RANDOM 76 mg/dL (70-110); HDL CHOLESTEROL 42 mg/dL (40-60); LDL CHOL (CALC.) 146 mg/dL (0-130); POTASSIUM 3.9 mmol/L (3.5-5.1); SODIUM SERUM 146 mmol/L (136-145); THYROID STIMULATING HORMONE 1.72 uIU/mL (0.36-3.74); TOTAL PROTEIN, SERUM 8.6 g/dL (6.4-8.2); TRIGLYCERIDES 97 mg/dL (15-150); UREA NITROGEN, BLOOD 24 mg/dL (7-18)
[2022-06-15 08:20] LABS: HEMOGLOBIN A1C 5.5 % (3.8-5.6)
[2022-06-15] MEDS: LORazepam 2 MG TABLET PO PRN (09:01)
[2022-06-15] MEDS: SERTRALINE HCL 50 MG TABLET PO SCH (14:47)
[2022-06-15 20:05] VITALS: BP 105/67
[2022-06-15] MEDS: QUEtiapine FUMARATE 200 MG TABLET PO SCH (20:54)
[2022-06-16] MEDS: LORazepam 2 MG TABLET PO PRN (08:40)
[2022-06-16] MEDS: SERTRALINE HCL 50 MG TABLET PO SCH (08:40)
[2022-06-16 20:14] VITALS: BP 122/85
[2022-06-16] MEDS: QUEtiapine FUMARATE 200 MG TABLET PO SCH (20:42)
[2022-06-16] MEDS: ZOLPIDEM TARTRATE 10 MG TABLET PO PRN (23:34)
[2022-06-17] MEDS: LORazepam 2 MG TABLET PO PRN ×2 (07:56→13:02)
[2022-06-17] MEDS: SERTRALINE HCL 50 MG TABLET PO SCH (08:00)
[2022-06-17 20:20] VITALS: BP 117/85
[2022-06-17] MEDS: QUEtiapine FUMARATE 200 MG TABLET PO SCH (20:37)
[2022-06-17] MEDS: ZOLPIDEM TARTRATE 10 MG TABLET PO PRN (21:51)
[2022-06-18] MEDS: SERTRALINE HCL 50 MG TABLET PO SCH (08:27)
[2022-06-18] MEDS: LORazepam 2 MG TABLET PO PRN ×3 (08:28→16:48)
[2022-06-18 08:30] VITALS: BP 110/91
[2022-06-18] MEDS: QUEtiapine FUMARATE 100 MG TABLET PO SCH (21:07)
[2022-06-19 08:36] VITALS: BP 109/63
[2022-06-19] MEDS: SERTRALINE HCL 50 MG TABLET PO SCH (08:36)
[2022-06-19] MEDS: LORazepam 2 MG TABLET PO PRN ×2 (11:30→20:18)
[2022-06-19 13:53] VITALS: BP 117/72
[2022-06-19] MEDS: QUEtiapine FUMARATE 100 MG TABLET PO SCH (20:29)
[2022-06-19 20:50] VITALS: BP 109/68
[2022-06-20] MEDS: SERTRALINE HCL 50 MG TABLET PO SCH (09:02)
[2022-06-20 09:12] VITALS: BP 141/89
[2022-06-20 16:42] VITALS: BP 123/78
[2022-06-20] MEDS: LORazepam 2 MG TABLET PO PRN (16:46)
[2022-06-20 20:20] VITALS: BP 122/75
[2022-06-20] MEDS: QUEtiapine FUMARATE 100 MG TABLET PO SCH (20:32)
[2022-06-21] MEDS: LORazepam 2 MG TABLET PO PRN (04:25)
[2022-06-21 08:31] VITALS: BP 121/76
[2022-06-21] MEDS: SERTRALINE HCL 50 MG TABLET PO SCH (08:40)
[2022-06-21] MEDS ORDERED: QUET100T34 PO (09:19)
[2022-06-21] MEDS ORDERED: SERT-439 PO (09:19)
== END 2022-06-21 13:00 | disposition home or self-care (01) | DRG 885 ==
LOC: B3A 18:20 → B2S 06-18 18:43
PROVIDERS: ADMIT Psychiatry & Neurology Psychiatry; ATTEND Psychiatry & Neurology Psychiatry
DX: F20.0 Paranoid schizophrenia (principal); B18.2 Chronic viral hepatitis C; E87.0 Hyperosmolality and hypernatremia; F19.10 Other psychoactive substance abuse, uncomplicated; E78.5 Hyperlipidemia, unspecified; Z22.7 Latent tuberculosis; Z79.899 Other long term (current) drug therapy; Z71.51 Drug abuse counseling and surveillance of drug abuser
CPT/HCPCS: 80053; 80061; 83036; 84439; 84443; 85025; J1200; J1630; J2060

== ENCOUNTER 2022-06-26 16:31 | Inpatient (IN) | payer MEDICARE, MEDICAID ==
[~2022-06-26] VITALS: Ht 177.8 cm; Wt 83.9 kg
[~2022-06-26 16:31] MED LIST changes: +QUET100T34 PO; -QUET200T PO; -SERT-162 PO; +SERT-439 PO
[2022-06-26 18:50] VITALS: BP 105/68
[2022-06-26] MEDS: ZOLPIDEM TARTRATE 10 MG TABLET PO PRN (22:28)
[2022-06-27] MEDS ORDERED: IBUPROFEN 400 MG TABLET PO PRN (06:45)
[2022-06-27] MEDS ORDERED: PETROLATUM,WHITE 28 GM JELLY TP PRN (06:45)
[2022-06-27] MEDS ORDERED: ALBUTEROL SULFATE HFA 90 MCG/PUFF 8 GM INHALER IH PRN (06:45)
[2022-06-27] MEDS ORDERED: ONDANSETRON HCL 4 MG TABLET PO PRN (06:45)
[2022-06-27] MEDS ORDERED: LOPERAMIDE HCL 2 MG CAPSULE PO PRN (06:45)
[2022-06-27] MEDS ORDERED: DOCUSATE SODIUM 100 MG CAPSULE PO PRN (06:45)
[2022-06-27] MEDS ORDERED: NICOTINE 14 MG/24 HOUR PATCH TD PRN (06:45)
[2022-06-27] MEDS ORDERED: ACETAMINOPHEN 325 MG TABLET PO PRN (06:45)
[2022-06-27] MEDS ORDERED: CloNIDine HCL 0.1 MG TABLET PO PRN (06:45)
[2022-06-27 07:37] LABS: BASOPHILS % (AUTO) 0.6 % (0.0-2.0); EOSINOPHILS % (AUTO) 1.6 % (1.0-6.0); HEMATOCRIT 43.6 % (41-53); LYMPHOCYTES # (AUTO) 1.8 K/uL (1.0-4.8); LYMPHOCYTES % (AUTO) 24.5 % (22.0-44.0); MEAN CORPUSCULAR HEMOGLOBIN 33.5 pg (26.0-34.0); MEAN CORPUSCULAR HGB CONC 34.4 G/dL (31.0-37.0); MEAN CORPUSCULAR VOLUME 98 fL (80-100); MONOCYTES # (AUTO) 0.5 K/uL (0.1-1.0); MONOCYTES % (AUTO) 7.1 % (2.0-9.0); NEUTROPHILS # (AUTO) 4.9 K/uL (1.8-7.7); NEUTROPHILS % (AUTO) 66.2 % (40.0-70.0); PLATELET COUNT (AUTO) 263 K/uL (150-450); RED BLOOD CELL COUNT(AUTO) 4.47 MIL/uL (4.50-5.90); RED CELL DISTRIBUTION WIDTH 13.9 % (11.5-14.5)
[2022-06-27 07:53] LABS: HEMOGLOBIN A1C 5.4 % (3.8-5.6)
[2022-06-27 08:01] LABS: ALANINE AMINOTRANSFERASE 20 U/L (12-78); ALBUMIN 4.1 g/dL (3.4-5.0); ALKALINE PHOSPHATASE 74 U/L (46-116); ANION GAP 9 mmol/L (8-16); ASPARTATE AMINOTRANSFERASE 15 U/L (15-37); BILIRUBIN,TOTAL 0.3 mg/dL (0.1-1.0); CALCIUM, TOTAL 9.3 mg/dL (8.8-10.5); CARBON DIOXIDE 24 mmol/L (22-29); CHLORIDE 107 mmol/L (98-107); CHOL/HDL RATIO 3.6 (4.2-7.3); CHOLESTEROL 172 mg/dL (131-200); FREE T4 (FREE THYROXINE) 1.08 ng/dL (0.76-1.46); GLOMERULAR FILTR. RATE CALC > 60 mL/min (>60); GLUCOSE,RANDOM 112 mg/dL (70-110); HDL CHOLESTEROL 48 mg/dL (40-60); LDL CHOL (CALC.) 112 mg/dL (0-130); POTASSIUM 4.1 mmol/L (3.5-5.1); SODIUM SERUM 140 mmol/L (136-145); THYROID STIMULATING HORMONE 1.91 uIU/mL (0.36-3.74); TOTAL PROTEIN, SERUM 7.7 g/dL (6.4-8.2); TRIGLYCERIDES 58 mg/dL (15-150); UREA NITROGEN, BLOOD 16 mg/dL (7-18)
[2022-06-27 08:35] VITALS: BP 131/93
[2022-06-27] MEDS: LORazepam 2 MG TABLET PO PRN ×3 (09:14→21:56)
[2022-06-27] MEDS: HALOPERIDOL 5 MG TABLET PO PRN (09:14)
[2022-06-27] MEDS: SERTRALINE HCL 50 MG TABLET PO SCH (11:09)
[2022-06-27 20:15] VITALS: BP 157/76
[2022-06-27] MEDS: ZOLPIDEM TARTRATE 10 MG TABLET PO PRN (20:30)
[2022-06-27] MEDS: QUEtiapine FUMARATE 100 MG TABLET PO SCH (20:30)
[2022-06-28 08:16] VITALS: BP 120/71
[2022-06-28] MEDS: LORazepam 2 MG TABLET PO PRN ×2 (08:20→16:07)
[2022-06-28] MEDS: SERTRALINE HCL 50 MG TABLET PO SCH (08:21)
[2022-06-28 20:29] VITALS: BP 145/93
[2022-06-28] MEDS: QUEtiapine FUMARATE 100 MG TABLET PO SCH (20:31)
[2022-06-29 03:04] VITALS: BP 119/72
[2022-06-29] MEDS: LORazepam 2 MG TABLET PO PRN ×2 (03:04→13:46)
[2022-06-29] MEDS: SERTRALINE HCL 50 MG TABLET PO SCH (08:35)
[2022-06-29 08:40] VITALS: BP 125/88
[2022-06-29] MEDS: MAGNESIUM HYDROXIDE SUSPENSION 30 ML UDCUP PO PRN (11:39)
[2022-06-29] MEDS: RisperiDONE 2 MG TABLET PO SCH ×2 (13:44→20:35)
[2022-06-29 20:56] VITALS: BP 109/63
[2022-06-30 08:22] VITALS: BP 110/76
[2022-06-30] MEDS: SERTRALINE HCL 50 MG TABLET PO SCH (08:38)
[2022-06-30] MEDS: RisperiDONE 2 MG TABLET PO SCH ×2 (08:39→20:28)
[2022-06-30] MEDS: LORazepam 2 MG TABLET PO PRN (13:53)
[2022-06-30] MEDS: MAG HYDROX/AL HYDROX/SIMETH ES 30 ML SUSPENSION UDCUP PO PRN (16:09)
[2022-06-30 20:10] VITALS: BP 111/74
[2022-06-30] MEDS: ZOLPIDEM TARTRATE 10 MG TABLET PO PRN (21:03)
[2022-07-01 05:07] VITALS: BP 123/85
[2022-07-01] MEDS: LORazepam 2 MG TABLET PO PRN ×2 (05:08→16:50)
[2022-07-01 07:36] LABS: GLUCOMETER DEV NAME(LOC) POC.BV
[2022-07-01 08:21] LABS: APPEARANCE,URINE CLEAR (CLEAR); BILIRUBIN,URINE NEGATIVE (NEGATIVE); GLUCOSE, URINE (UA) NEGATIVE (NEGATIVE); KETONES,URINE NEGATIVE (NEGATIVE); LEUKOCYTE ESTERASE ,URINE NEGATIVE (NEGATIVE); NITRATE,URINE NEGATIVE (NEGATIVE); OCCULT BLOOD,URINE NEGATIVE (NEGATIVE); PROTEIN,URINE NEGATIVE (NEGATIVE); SPECIFIC GRAVITIY, URINE 1.017 (1.003-1.030); UROBILINOGEN,URINE <=1.0 mg/dL (<=1.0)
[2022-07-01] MEDS: RisperiDONE 2 MG TABLET PO SCH ×2 (08:41→20:29)
[2022-07-01] MEDS: SERTRALINE HCL 50 MG TABLET PO SCH (08:41)
[2022-07-01 08:46] VITALS: BP 118/82
[2022-07-01 08:47] LABS: BENZODIAZEPINES SCREEN,URINE NEGATIVE (NEGATIVE); CANNABINOID SCREEN,URINE NEGATIVE (NEGATIVE); COCAINE SCREEN,URINE NEGATIVE (NEGATIVE); METHADONE SCREEN, URINE NEGATIVE (NEGATIVE); OPIATE SCREEN,URINE NEGATIVE (NEGATIVE); PHENCYCLIDINE SCREEN,URINE NEGATIVE (NEGATIVE)
[2022-07-01 08:56] LABS: AMPHET/METH SCREEN,URINE NEGATIVE (NEGATIVE); BARBITURATE SCREEN, URINE NEGATIVE (NEGATIVE)
[2022-07-01] MEDS: MAGNESIUM HYDROXIDE SUSPENSION 30 ML UDCUP PO PRN (09:14)
[2022-07-01 16:49] VITALS: BP 122/85
[2022-07-01 20:29] VITALS: BP 122/85
[2022-07-02] MEDS: RisperiDONE 2 MG TABLET PO SCH ×2 (08:34→20:53)
[2022-07-02] MEDS: SERTRALINE HCL 50 MG TABLET PO SCH (08:34)
[2022-07-02 08:40] VITALS: BP 130/90
[2022-07-02] MEDS: MAG HYDROX/AL HYDROX/SIMETH ES 30 ML SUSPENSION UDCUP PO PRN (11:59)
[2022-07-02] MEDS ORDERED: PALIPERIDONE PALMITATE 234 MG/1.5 ML SYRINGE IM ONE (16:00)
[2022-07-02 20:31] VITALS: BP 116/80
[2022-07-02] MEDS: ZOLPIDEM TARTRATE 10 MG TABLET PO PRN (22:26)
[2022-07-03] MEDS: SERTRALINE HCL 50 MG TABLET PO SCH (08:18)
[2022-07-03] MEDS: RisperiDONE 2 MG TABLET PO SCH ×2 (08:18→20:40)
[2022-07-03 08:42] VITALS: BP 129/84
[2022-07-03] MEDS: LORazepam 2 MG TABLET PO PRN (13:29)
[2022-07-03] MEDS: HALOPERIDOL 5 MG TABLET PO PRN (15:47)
[2022-07-03 20:47] VITALS: BP 129/74
[2022-07-04 02:37] VITALS: BP 110/81
[2022-07-04] MEDS: RisperiDONE 2 MG TABLET PO SCH ×2 (08:37→20:36)
[2022-07-04] MEDS: SERTRALINE HCL 50 MG TABLET PO SCH (08:37)
[2022-07-04 08:51] VITALS: BP 104/74
[2022-07-04] MEDS: HALOPERIDOL 5 MG TABLET PO PRN (18:18)
[2022-07-04 20:26] VITALS: BP 126/77
[2022-07-04] MEDS: ZOLPIDEM TARTRATE 10 MG TABLET PO PRN (23:53)
[2022-07-05 09:04] VITALS: BP 119/62
[2022-07-05] MEDS: SERTRALINE HCL 50 MG TABLET PO SCH (09:08)
[2022-07-05] MEDS: RisperiDONE 2 MG TABLET PO SCH ×2 (09:08→20:16)
[2022-07-05 20:41] VITALS: BP 122/86
[2022-07-06 08:35] VITALS: BP 139/90
[2022-07-06] MEDS: RisperiDONE 2 MG TABLET PO SCH ×2 (08:43→20:29)
[2022-07-06] MEDS: SERTRALINE HCL 50 MG TABLET PO SCH (08:43)
[2022-07-06] MEDS ORDERED: PALIPERIDONE PALMITATE 156 MG/ML SYRINGE IM ONE (09:00)
[2022-07-06 20:39] VITALS: BP 136/84
[2022-07-06] MEDS: ZOLPIDEM TARTRATE 10 MG TABLET PO PRN (23:33)
[2022-07-07 08:37] VITALS: BP 121/97
[2022-07-07] MEDS: RisperiDONE 2 MG TABLET PO SCH ×2 (08:45→20:48)
[2022-07-07] MEDS: SERTRALINE HCL 50 MG TABLET PO SCH (08:45)
[2022-07-07] MEDS: LORazepam 2 MG TABLET PO PRN (13:06)
[2022-07-07 20:31] VITALS: BP 107/63
[2022-07-08 08:25] VITALS: BP 111/73
[2022-07-08] MEDS: SERTRALINE HCL 50 MG TABLET PO SCH (08:38)
[2022-07-08] MEDS: RisperiDONE 2 MG TABLET PO SCH ×2 (08:38→20:21)
[2022-07-08] MEDS: LORazepam 2 MG TABLET PO PRN (08:52)
[2022-07-08] MEDS: HALOPERIDOL 5 MG TABLET PO PRN (14:07)
[2022-07-08 16:41] LABS: GLUCOMETER DEV NAME(LOC) POC.BV
[2022-07-08 20:49] VITALS: BP 104/72
[2022-07-09] MEDS: SERTRALINE HCL 50 MG TABLET PO SCH (08:29)
[2022-07-09] MEDS: RisperiDONE 2 MG TABLET PO SCH ×2 (08:29→20:58)
[2022-07-09 08:34] VITALS: BP 124/74
[2022-07-09 20:38] VITALS: BP 109/66
[2022-07-10] MEDS: GuaiFENesin/D-METHORPHAN [SUGAR-FREE] 200-20MG/10 ML SYRUP UDCUP PO PRN ×2 (02:12→22:02)
[2022-07-10] MEDS: ZOLPIDEM TARTRATE 10 MG TABLET PO PRN (02:37)
[2022-07-10 08:51] VITALS: BP 125/80
[2022-07-10] MEDS: RisperiDONE 2 MG TABLET PO SCH ×2 (08:56→21:44)
[2022-07-10] MEDS: SERTRALINE HCL 50 MG TABLET PO SCH (08:56)
[2022-07-10 20:41] VITALS: BP 110/77
[2022-07-10] MEDS: LORazepam 2 MG TABLET PO PRN (22:27)
[2022-07-10] MEDS: HALOPERIDOL 5 MG TABLET PO PRN (23:00)
[2022-07-11 08:40] VITALS: BP 114/79
[2022-07-11] MEDS: SERTRALINE HCL 50 MG TABLET PO SCH (09:30)
[2022-07-11] MEDS: RisperiDONE 2 MG TABLET PO SCH ×2 (09:30→20:37)
[2022-07-11] MEDS: LORazepam 2 MG TABLET PO PRN (20:00)
[2022-07-11] MEDS: GuaiFENesin/D-METHORPHAN [SUGAR-FREE] 200-20MG/10 ML SYRUP UDCUP PO PRN (20:15)
[2022-07-11 20:31] VITALS: BP 128/80
[2022-07-12 05:53] VITALS: BP 134/75
[2022-07-12] MEDS: LORazepam 2 MG TABLET PO PRN (06:02)
[2022-07-12 08:46] VITALS: BP 121/86
[2022-07-12] MEDS: SERTRALINE HCL 50 MG TABLET PO SCH (08:53)
[2022-07-12] MEDS: RisperiDONE 2 MG TABLET PO SCH ×2 (08:53→21:42)
[2022-07-12 20:41] VITALS: BP 117/67
[2022-07-12] MEDS: ZOLPIDEM TARTRATE 10 MG TABLET PO PRN (21:43)
[2022-07-13] MEDS ORDERED: PALI234D IM (06:26)
[2022-07-13] MEDS ORDERED: SERT-439 PO (06:26)
[2022-07-13] MEDS ORDERED: RISP2TAB86 PO (06:26)
[2022-07-13] MEDS: RisperiDONE 2 MG TABLET PO SCH (08:14)
[2022-07-13] MEDS: SERTRALINE HCL 50 MG TABLET PO SCH (08:14)
[2022-07-13 08:49] VITALS: BP 108/75
[2022-08-03] MEDS ORDERED: PALIPERIDONE PALMITATE 234 MG/1.5 ML SYRINGE IM SCH (09:00)
== END 2022-07-13 11:05 | disposition home or self-care (01) | DRG 885 ==
LOC: B2S 18:41
PROVIDERS: ADMIT Psychiatry & Neurology Psychiatry; ATTEND Psychiatry & Neurology Psychiatry
PROC: GZHZZZZ Group Psychotherapy (ICD-10-PCS; principal; 2022-06-26)
DX: F20.0 Paranoid schizophrenia (principal); E78.5 Hyperlipidemia, unspecified; Z79.899 Other long term (current) drug therapy; Z20.822 Contact with and (suspected) exposure to COVID-19; G47.00 Insomnia, unspecified; F19.10 Other psychoactive substance abuse, uncomplicated; F99 Mental disorder, not otherwise specified
CPT/HCPCS: 80053; 80061; 80307; 81003; 83036; 84439; 84443; 85025; 87081

== ENCOUNTER 2022-07-26 22:02 | Inpatient (IN) | payer MEDICARE, MEDICAID ==
[~2022-07-26] VITALS: Ht 177.8 cm; Wt 93.4 kg
[~2022-07-26 22:02] MED LIST changes: +PALI234D IM; -QUET100T34 PO; +RISP2TAB86 PO
[2022-07-26 22:57] VITALS: BP 111/77
[2022-07-26] MEDS ORDERED: HALOPERIDOL 5 MG TABLET PO PRN (23:15)
[2022-07-27] MEDS ORDERED: QUET100T PO (00:19)
[2022-07-27 00:41] LABS: GLUCOMETER DEV NAME(LOC) POC.BV
[2022-07-27] MEDS: ZOLPIDEM TARTRATE 10 MG TABLET PO PRN ×2 (00:58→20:02)
[2022-07-27 01:03] VITALS: BP 122/77
[2022-07-27 08:05] LABS: BASOPHILS % (AUTO) 0.6 % (0.0-2.0); EOSINOPHILS % (AUTO) 3.7 % (1.0-6.0); HEMATOCRIT 41.2 % (41-53); HEMOGLOBIN 13.9 g/dL (13.5-17.5); LYMPHOCYTES # (AUTO) 2.4 K/uL (1.0-4.8); LYMPHOCYTES % (AUTO) 29.9 % (22.0-44.0); MEAN CORPUSCULAR HEMOGLOBIN 33.9 pg (26.0-34.0); MEAN CORPUSCULAR HGB CONC 33.6 G/dL (31.0-37.0); MEAN CORPUSCULAR VOLUME 101 fL (80-100); MONOCYTES # (AUTO) 0.7 K/uL (0.1-1.0); MONOCYTES % (AUTO) 8.7 % (2.0-9.0); NEUTROPHILS # (AUTO) 4.5 K/uL (1.8-7.7); NEUTROPHILS % (AUTO) 57.1 % (40.0-70.0); PLATELET COUNT (AUTO) 238 K/uL (150-450); RED BLOOD CELL COUNT(AUTO) 4.08 MIL/uL (4.50-5.90); RED CELL DISTRIBUTION WIDTH 13.9 % (11.5-14.5)
[2022-07-27 08:25] VITALS: BP 115/66
[2022-07-27 08:37] LABS: ALANINE AMINOTRANSFERASE 21 U/L (12-78); ALBUMIN 2.8 g/dL (3.4-5.0); ALKALINE PHOSPHATASE 64 U/L (46-116); ANION GAP 6 mmol/L (8-16); ASPARTATE AMINOTRANSFERASE 19 U/L (15-37); BILIRUBIN,TOTAL 0.2 mg/dL (0.1-1.0); CALCIUM, TOTAL 8.5 mg/dL (8.8-10.5); CARBON DIOXIDE 28 mmol/L (22-29); CHLORIDE 104 mmol/L (98-107); CHOL/HDL RATIO 4.2 (4.2-7.3); CHOLESTEROL 191 mg/dL (131-200); CREATININE 1.02 mg/dL (0.60-1.30); FREE T4 (FREE THYROXINE) 0.85 ng/dL (0.76-1.46); GLOMERULAR FILTR. RATE CALC > 60 mL/min (>60); GLUCOSE,RANDOM 88 mg/dL (70-110); HDL CHOLESTEROL 45 mg/dL (40-60); LDL CHOL (CALC.) 131 mg/dL (0-130); POTASSIUM 4.2 mmol/L (3.5-5.1); SODIUM SERUM 138 mmol/L (136-145); TOTAL PROTEIN, SERUM 6.3 g/dL (6.4-8.2); TRIGLYCERIDES 77 mg/dL (15-150)
[2022-07-27] MEDS: SERTRALINE HCL 50 MG TABLET PO SCH (09:45)
[2022-07-27] MEDS ORDERED: ACETAMINOPHEN 325 MG TABLET PO PRN (14:30)
[2022-07-27] MEDS ORDERED: MAGNESIUM HYDROXIDE SUSPENSION 30 ML UDCUP PO PRN (14:30)
[2022-07-27] MEDS ORDERED: IBUPROFEN 400 MG TABLET PO PRN (14:30)
[2022-07-27] MEDS ORDERED: GuaiFENesin/D-METHORPHAN [SUGAR-FREE] 200-20MG/10 ML SYRUP UDCUP PO PRN (14:30)
[2022-07-27] MEDS ORDERED: ONDANSETRON HCL 4 MG TABLET PO PRN (14:30)
[2022-07-27] MEDS ORDERED: ALBUTEROL SULFATE HFA 90 MCG/PUFF 8 GM INHALER IH PRN (14:30)
[2022-07-27] MEDS ORDERED: LOPERAMIDE HCL 2 MG CAPSULE PO PRN (14:30)
[2022-07-27] MEDS ORDERED: DOCUSATE SODIUM 100 MG CAPSULE PO PRN (14:30)
[2022-07-27] MEDS ORDERED: NICOTINE 14 MG/24 HOUR PATCH TD PRN (14:30)
[2022-07-27] MEDS ORDERED: CloNIDine HCL 0.1 MG TABLET PO PRN (14:30)
[2022-07-27] MEDS ORDERED: PETROLATUM,WHITE 28 GM JELLY TP PRN (14:30)
[2022-07-27] MEDS ORDERED: MAG HYDROX/AL HYDROX/SIMETH ES 30 ML SUSPENSION UDCUP PO PRN (14:30)
[2022-07-27 20:19] VITALS: BP 127/92
[2022-07-28] MEDS: SERTRALINE HCL 50 MG TABLET PO SCH (08:07)
[2022-07-28 08:17] VITALS: BP 115/65
[2022-07-28] MEDS: LORazepam 1 MG TABLET PO PRN ×2 (10:41→16:00)
[2022-07-28 16:08] VITALS: BP 128/83
[2022-07-28] MEDS: ZOLPIDEM TARTRATE 10 MG TABLET PO PRN (20:09)
[2022-07-29 00:45] VITALS: BP 114/76
[2022-07-29] MEDS: LORazepam 1 MG TABLET PO PRN ×5 (02:39→20:51)
[2022-07-29 08:42] VITALS: BP 104/64
[2022-07-29] MEDS: SERTRALINE HCL 50 MG TABLET PO SCH (09:19)
[2022-07-29 16:08] VITALS: BP 118/72
[2022-07-29] MEDS: ZOLPIDEM TARTRATE 10 MG TABLET PO PRN (20:51)
[2022-07-30 00:59] VITALS: BP 115/66
[2022-07-30] MEDS: LORazepam 1 MG TABLET PO PRN ×2 (04:24→06:53)
[2022-07-30 04:41] VITALS: BP 102/68
[2022-07-30] MEDS: SERTRALINE HCL 50 MG TABLET PO SCH (08:11)
[2022-07-30 08:14] VITALS: BP 102/62
[2022-07-30] MEDS ORDERED: PALI234D IM (09:10)
[2022-07-30] MEDS ORDERED: SERT-439 PO (09:10)
[2022-08-03] MEDS ORDERED: PALIPERIDONE PALMITATE 234 MG/1.5 ML SYRINGE IM SCH (09:00)
== END 2022-07-30 13:17 | disposition home or self-care (01) | DRG 885 ==
LOC: B2S 07-27 00:32
PROVIDERS: ADMIT Psychiatry & Neurology Psychiatry; ATTEND Psychiatry & Neurology Psychiatry
DX: F25.0 Schizoaffective disorder, bipolar type (principal); R45.851 Suicidal ideations; E78.5 Hyperlipidemia, unspecified; F19.10 Other psychoactive substance abuse, uncomplicated; G47.00 Insomnia, unspecified; Z86.15 Personal history of latent tuberculosis infection; Z79.899 Other long term (current) drug therapy; Z20.822 Contact with and (suspected) exposure to COVID-19
CPT/HCPCS: 80053; 80061; 84439; 84443; 85025; 87081

== ENCOUNTER 2022-10-31 12:07 | Emergency (ER) | payer MEDICARE, MEDICAID ==
[~2022-10-31] VITALS: Ht 177.8 cm; Wt 90.9 kg
[~2022-10-31 12:07] MED LIST changes: -ALPR-705 PO; -ONDA-104 PO
[2022-10-31 12:25] VITALS: TEMP 98.5
[2022-10-31] MEDS ORDERED: ONDA-104 PO (15:14)
[2022-10-31] MEDS ORDERED: ALPR-705 PO (15:15)
[2022-10-31 15:30] VITALS: BP 115/86; PULSE 88; RESP 20
== END 2022-10-31 16:02 | disposition home or self-care (01) ==
LOC: EMS 12:14
DX: F19.10 Other psychoactive substance abuse, uncomplicated (principal); F31.9 Bipolar disorder, unspecified; F17.210 Nicotine dependence, cigarettes, uncomplicated; Z71.41 Alcohol abuse counseling and surveillance of alcoholic
CPT/HCPCS: 99283; Z7502

== ENCOUNTER → 2022-10-31 | Outpatient (CLI) | payer MEDICARE, MEDICAID ==
[~2022-10-31] MED LIST changes: +ALPR-705 PO; +ONDA-104 PO; -RISP2TAB86 PO
[2022-10-31 12:32] LABS: ALCOHOL, URINE DRUG SCREEN NEGATIVE (NEGATIVE); AMPHET/METH SCREEN,URINE NEGATIVE (NEGATIVE); BARBITURATE SCREEN, URINE NEGATIVE (NEGATIVE); BENZODIAZEPINES SCREEN,URINE NEGATIVE (NEGATIVE); CANNABINOID SCREEN,URINE NEGATIVE (NEGATIVE); COCAINE SCREEN,URINE NEGATIVE (NEGATIVE); METHADONE SCREEN, URINE NEGATIVE (NEGATIVE); OPIATE SCREEN,URINE POSITIVE (NEGATIVE); PHENCYCLIDINE SCREEN,URINE NEGATIVE (NEGATIVE)
== END | disposition home or self-care (01) ==
LOC: LABMN 11:19
PROVIDERS: ATTEND Psychiatry & Neurology Psychiatry
DX: F25.0 Schizoaffective disorder, bipolar type (principal); F11.20 Opioid dependence, uncomplicated
CPT/HCPCS: 80307